=== PATIENT | male | born 1945 | race African-American/Black ===

== ENCOUNTER 2016-06-12 18:10 | Inpatient (IN) | payer MEDICARE, OTHER ==
[~2016-06-12] VITALS: Ht 170.2 cm; Wt 83.0 kg
[~2016-06-12 18:10] MED LIST: LORT7.5T3 PO; OXYC-360 PO; Z.0.NO CURRENT MEDS
[2016-06-12 18:20] VITALS: BP 121/99; PULSE 95; RESP 16; TEMP 97.9; O2SAT 98
[2016-06-12] MEDS ORDERED: SODIUM CHLORIDE 0.9% FLUSH 10 ML FLUSH IVF PRN (18:30)
--- NOTE | 2016-06-12 18:36 | PD ---
HPI Chief Complaint: General Weakness Time Seen by Provider: 18:26 Travel History International Travel<30 days: No Contact w/Intl Traveler<30days: No Traveled to known affect area: No History of Present Illness HPI 70-year-old male presents to the ED via EMS for evaluation of altered mental status. According to EMS the patient was found rolling around in leaves in his yard by neighbors. They state that the patient appeared postictal and they were unable to find a good pulse or BP on arrival. They gave the patient 6 of adenosine and a liter of NS en route. On arrival the patient is alert, sitting upright, in no acute distress. He is unable to account for the events of the afternoon. He denies fevers, chills, headaches, dizziness, cold or flu symptoms , chest pain, palpitations, shortness of breath, abdominal pain, nausea, vomiting, changes in bowel habits, dysuria, back pain, weakness of the extremities. He denies using alcohol or illicit drugs. He denies history of seizure. He takes Lortab for chronic pain. He states that he administers his own daily medications. PCP Dr. Montoya. [facility] Past Medical History Depression: Yes Diabetes: No Diminished Hearing: No Hypertension: Yes Social History Alcohol Use: No (SOBER FOR 24 YEARS PER PT--) Tobacco Use: No Substance Use: No Allergies-Medications (Allergen,Severity, Reaction): Coded Allergies: No Known Allergies (Verified , 06/12/16) Reported Meds & Prescriptions Reported Meds & Active Scripts Active Active Prescriptions or Reported Medications Unobtainable Review of Systems Except as stated in HPI: all other systems reviewed are Neg Physical Exam Narrative GENERAL: Well-nourished, well-developed black male in no acute distress. SKIN: Warm and dry. HEAD: Normocephalic. Atraumatic. EYES: No scleral icterus. No injection or drainage. Pupils pin pint bilaterally. Bilateral arcus senilis. EOMI. ENT: Pearly gillespie tympanic membranes bilaterally. Nasal mucosa is moist. Oropharynx without erythema, edema or exudate. NECK: Supple, trachea midline. No JVD or lymphadenopathy. CARDIOVASCULAR: Regular rate and rhythm without murmurs, gallops, or rubs. 2+ DP and radial pulses bilaterally. RESPIRATORY: Breath sounds equal. Course breath sounds bilaterally. No accessory muscle use. GASTROINTESTINAL: Abdomen soft, non-tender, nondistended. + Bowel sounds MUSCULOSKELETAL: No cyanosis, or edema. Full, active range of motion. Strength 5/5. Neurovascularly intact. NEUROLOGICAL: Awake and alert. Cranial nerves II through XII intact. No difficulties with finger to nose testing. Motor and sensory grossly within normal limits. 5/5 muscle strength in all muscle groups. Slurred speech, pt states this is his normal. BACK: Nontender without obvious deformity. No CVA tenderness. Data Data Last Documented VS Vital Signs Date Time Temp Pulse Resp B/P Pulse Ox O2 Delivery O2 Flow Rate FiO2 06/12/16 18:20 97.9 95 16 121/99 98 Orders Electrocardiogram (06/12/16 18:25) Ammonia (06/12/16 18:25) Complete Blood Count With Diff (06/12/16 18:25) Comprehensive Metabolic Panel (06/12/16 18:25) Creatine Kinase (Cpk) (06/12/16 18:25) Prothrombin Time / Inr (Pt) (06/12/16 18:25) Act Partial Throm Time (Ptt) (06/12/16 18:25) Troponin I (06/12/16 18:25) Thyroid Stimulating Hormone (06/12/16 18:25) Urinalysis - C+S If Indicated (06/12/16 18:25) Chest, Single Ap (06/12/16 18:25) Ct Brain W/O Iv Contrast(Rout) (06/12/16 18:25) Blood Glucose (06/12/16 18:25) Ecg Monitoring (06/12/16 18:25) Iv Access Insert/Monitor (06/12/16 18:25) Oximetry (06/12/16 18:25) Sodium Chloride 0.9% Flush (Ns Flush) (06/12/16 18:30) Drug Screen, Random Urine (06/12/16 18:25) Alcohol (Ethanol) (06/12/16 18:25) Salicylates (Aspirin) (06/12/16 18:25) Tylenol (Acetaminophen) (06/12/16 18:25) Sodium Chlor 0.9% 1000 Ml Inj (Ns 1000 M (06/12/16 21:15) Sodium Chlor 0.9% 1000 Ml Inj (Ns 1000 M (06/12/16 21:15) Labs Laboratory Tests Test 06/12/16 06/12/16 06/12/16 18:50 19:10 19:50 Prothrombin Time 12.2 SEC Prothromb Time International 1.1 RATIO Ratio Activated Partial 19.7 SEC Thromboplast Time White Blood Count 10.0 TH/MM3 Red Blood Count 6.22 MIL/MM3 Hemoglobin 18.4 GM/DL Hematocrit 56.1 % Mean Corpuscular Volume 90.1 FL Mean Corpuscular Hemoglobin 29.5 PG Mean Corpuscular Hemoglobin 32.8 % Concent Red Cell Distribution Width 14.4 % Platelet Count 95 TH/MM3 Mean Platelet Volume 10.6 FL Neutrophils (%) (Auto) 79.9 % Lymphocytes (%) (Auto) 11.6 % Monocytes (%) (Auto) 8.3 % Eosinophils (%) (Auto) 0.0 % Basophils (%) (Auto) 0.2 % Neutrophils # (Auto) 8.0 TH/MM3 Lymphocytes # (Auto) 1.2 TH/MM3 Monocytes # (Auto) 0.8 TH/MM3 Eosinophils # (Auto) 0.0 TH/MM3 Basophils # (Auto) 0.0 TH/MM3 CBC Comment DIFF FINAL Differential Comment Sodium Level 150 MEQ/L Potassium Level 4.3 MEQ/L Chloride Level 116 MEQ/L Carbon Dioxide Level 20.1 MEQ/L Anion Gap 14 MEQ/L Blood Urea Nitrogen 87 MG/DL Creatinine 2.74 MG/DL Estimat Glomerular Filtration 28 ML/MIN Rate Random Glucose 192 MG/DL Calcium Level 8.8 MG/DL Total Bilirubin 0.4 MG/DL Aspartate Amino Transf 14 U/L (AST/SGOT) Alanine Aminotransferase 14 U/L (ALT/SGPT) Alkaline Phosphatase 69 U/L Total Creatine Kinase 155 U/L Troponin I LESS THAN 0.02 NG/ML Total Protein 8.5 GM/DL Albumin 3.9 GM/DL Thyroid Stimulating Hormone 1.490 uIU/ML 3rd Gen Acetaminophen Level LESS THAN 2.0 MCG/ML Ethyl Alcohol Level 4 MG/DL Ammonia LESS THAN 10 MCMOL/L Salicylates Level LESS THAN 1.7 MG/DL [facility] Medical Decision Making Medical Screen Exam Complete: Yes Emergency Medical Condition: Yes Differential Diagnosis pneumonia versus UTI versus electrolyte abnormality versus dehydration versus ACS versus ICH versus accidental overdose versus alcohol intoxication versus other Narrative Course 70-year-old male presents to the ED via EMS for evaluation of altered mental status. According to EMS the patient was found rolling around in leaves in his yard by neighbors. They report that the patient appeared postictal and they were unable to find a good pulse or BP on arrival. 6 of adenosine and a liter of NS administered en route. On arrival the patient is alert, sitting upright, in no acute distress. He is unable to account for the events of the afternoon. He denies fevers, chills, headaches, dizziness, cold or flu symptoms, chest pain, palpitations, shortness of breath, abdominal pain, nausea, vomiting, changes in bowel habits, dysuria, back pain, weakness of the extremities, alcohol use, illicit drug use, history of seizures. He takes Lortab for chronic pain. He states that he administers his own daily medications. PCP Dr. Montoya. Vitals reviewed. Physical exam reveals an alert and oriented black male in no acute distress. The patient does appear dry and there are coarse breath sounds bilaterally but the physical exam is otherwise unremarkable. IV was established. Patient was placed on continuous monitoring. CBC: WBC 10.0. Hemoglobin 18.4 CMP: Sodium 150, chloride 116, BUN 87, creatinine 2.74. INR: 1.1 UA: pending Ammonia: Less than 10 Tox screen: Alcohol level: 4 Tylenol: Less than 2.0 Salicylates: Less than 1.7 Cardiac enzymes: Negative EKG: Rate 98, sinus rhythm. MN interval 146, QRS 81, QTC 414. CXR: No acute cardiopulmonary disease per radiology read. CT of the head: No acute infarct, hemorrhage, mass effect, extra-axial fluid collections. Mild atrophy and white matter small vessel ischemic changes bilaterally per radiology read. The patient is in LETICIA, dehydrated, hemoconcentrated, hypernatremic. 2 L NS bolus ordered. Patient's family denied known history of kidney disease. Previous BUN and creatinine on record are from 2007. I spoke with the patient and his family regarding the results of the workup. They are agreeable to admission. Call placed to [facility]. I spoke with Dr. Aldana who agrees to accept the patient to the medicine service. Please see medicine notes for disposition. Diagnosis Primary Impression: LETICIA (acute kidney injury) Additional Impressions: Dehydration Hypernatremia Scripts Unable to Obtain Active Prescriptions or Reported Meds Celia Delcid Jun 12, 2016 18:36
--- NOTE | 2016-06-12 19:22 | RADRPT ---
EXAM DATE/TIME: 06/12/2016 18:50 [facility] COMPARISON: No previous studies available for comparison. INDICATIONS : Found unresponsive today; possible seizure; postictal. RADIATION DOSE: 56.35 CTDIvol (mGy) MEDICAL HISTORY : Hypertension. SURGICAL HISTORY : None. ENCOUNTER: Initial ACUITY: 1 day PAIN SCALE: 0/10 LOCATION: cranial TECHNIQUE: Multiple contiguous axial images were obtained of the head. Using automated exposure control and adj ustment of the mA and/or kV according to patient size, radiation dose was kept as low as reasonably a chievable to obtain optimal diagnostic quality images. FINDINGS: CEREBRUM: Mild cerebral atrophy is noted. Minimal periventricular white matter small vessel ischemic changes ar e noted. No evidence of midline shift, mass lesion, hemorrhage or acute infarction. No extra-axial f luid collections are seen. POSTERIOR FOSSA: The cerebellum and brainstem are intact. The 4th ventricle is midline. The cerebellopontine angle i s unremarkable. EXTRACRANIAL: The visualized portion of the orbits is intact. SKULL: The calvaria is intact. No evidence of skull fracture. CONCLUSION: Mild cerebral atrophy and minimal periventricular white matter small vessel ischemic changes bilaterally. No acute infarct, acute hemorrhage, mass effect or extra axial fluid collections . Geoff Wood MD on June 12, 2016 at 19:19 Board Certified Radiologist. This report was verified electronically.
--- NOTE | 2016-06-12 19:29 | RADRPT ---
EXAM DATE/TIME: 06/12/2016 18:36 [facility] COMPARISON: No previous studies available for comparison. INDICATIONS : Syncope. MEDICAL HISTORY : None. SURGICAL HISTORY : None. ENCOUNTER: Initial ACUITY: 1 day PAIN SCORE: 0/10 LOCATION: Bilateral chest FINDINGS: A single view of the chest demonstrates the lungs to be symmetrically aerated without evidence of mas s, infiltrate or effusion. The cardiomediastinal contours are unremarkable. Degenerative images and scoliosis of the thoracic spine are noted. Degenerative changes involving the shoulders are noted alisia aterally. CONCLUSION: No acute cardiopulmonary disease. Geoff Wood MD on June 12, 2016 at 19:26 Board Certified Radiologist. This report was verified electronically.
[2016-06-12 19:49] LABS: BASOPHIL % 0.2 % (0.0-2.0); HEMATOCRIT 56.1 % (39.0-51.0); LYMPH % 11.6 % (9.0-44.0); LYMPHOCYTE # 1.2 TH/MM3 (1.0-4.8); MEAN CELL VOLUME 90.1 FL (80.0-100.0); MEAN CORPUSCULAR HEMOGLOBIN 29.5 PG (27.0-34.0); MEAN CORPUSCULAR HGB CONC 32.8 % (32.0-36.0); MONO % 8.3 % (0.0-8.0); NEUT % 79.9 % (16.0-70.0); PLATELET COUNT 95 TH/MM3 (150-450); RED BLOOD COUNT 6.22 MIL/MM3 (4.50-5.90); RED CELL DISTRIBUTION WIDTH 14.4 % (11.6-17.2)
[2016-06-12 19:53] LABS: HEMO FLAGS DIFF FINAL
[2016-06-12 20:01] LABS: ANION GAP 14 MEQ/L (5-15)
[2016-06-12 20:12] LABS: ACETAMINOPHEN LESS THAN 2.0 MCG/ML (10.0-30.0); ALKALINE PHOSPHATASE 69 U/L (45-117); ALT (GPT) 14 U/L (12-78); AST (GOT) 14 U/L (15-37); BICARBONATE 20.1 MEQ/L (21.0-32.0); BLOOD UREA NITROGEN 87 MG/DL (7-18); CHLORIDE 116 MEQ/L (98-107); CREATINE KINASE 155 U/L (39-308); GLOMERULAR FILTRATION RATE 28 ML/MIN (>89); POTASSIUM 4.3 MEQ/L (3.5-5.1); SODIUM (NA) 150 MEQ/L (136-145); TOTAL BILIRUBIN ADULT 0.4 MG/DL (0.2-1.0)
[2016-06-12 20:32] LABS: INTERNATIONAL NORMALIZED RATIO 1.1 RATIO; PROTHROMBIN TIME - PATIENT 12.2 SEC (9.8-11.6)
[2016-06-12 20:34] LABS: APTT (PATIENT) 19.7 SEC (24.3-30.1)
[2016-06-12 21:00] VITALS: BP 129/105; PULSE 94; RESP 16; O2SAT 95
[2016-06-12] MEDS ORDERED: SODIUM CHLOR 0.9% 1000 ML INJ 1,000 ML IV ONE ×2 (21:15)
[2016-06-12] MEDS ORDERED: MAGNESIUM HYDROXIDE SUSP 30 ML CUP PO PRN (21:30)
[2016-06-12] MEDS ORDERED: SENNOSIDES 8.6 MG TAB PO PRN (21:30)
[2016-06-12] MEDS ORDERED: SODIUM CHLORIDE 0.9% FLUSH 10 ML FLUSH IV FLUSH PRN (21:30)
[2016-06-12] MEDS ORDERED: BISACODYL 10 MG SUPP PR PRN (21:30)
[2016-06-12] MEDS ORDERED: NALOXONE HCL 0.4 MG/ML AMP IV PRN (21:30)
[2016-06-12] MEDS ORDERED: HEPARIN SODIUM - SQ 10,000 UNITS/ML VIAL SQ SCH (22:00)
--- NOTE | 2016-06-12 22:15 | HHI.HP ---
[facility] Weston Cruz MD Admission Diagnosis LETICIA, dehydration, hypernatremia Diagnoses: Travel History International Travel<30 Days: No Contact w/Intl Traveler <30 Da: No Traveled to Known Affected Are: No History of Present Illness 70 y/o male with a history of hypertension and hyperlipidemia was brought in by EMS after being found by a friend in a very lethargic/postictal state. According to the ER physician patient was found on the ground very disoriented and EMS was called. EMS was unable to get a good pulse gave 1 L of NS, and patient began to become alert. Another education was given, but unknown which one. According to the son, the patient asked a friend who delivers meals to go to the store and when she returned he was passed out on the ground. He was found to be very disoriented, patient denies any loss of urine or bowels. Son states he is currently close to his baseline mentally but he has not seen him in a few months. He recently moved to [facility] and does not care for his father anymore. Son is not sure if his father is taking any of his medications at home , and thinks he has lost weight. Patient states he feels a little weak, and knows he is in the hospital and the date. He has not seen his dr since last year. He denies any nausea, vomiting, diarrhea, constipation, cough, chest pain or sob. Upon examination patient appears to be alert, and eating dinner and is found to have a resting tremor in his right hand. Patient states he does not have a history of seizures and does not recall having any seizures in the past. PCP is DR. Cruz Review of Systems Constitutional: COMPLAINS OF: Weight loss, DENIES: Fever, Chills Respiratory: DENIES: Cough, Sputum production, Shortness of breath Cardiovascular: COMPLAINS OF: Syncope, DENIES: Chest pain Gastrointestinal: DENIES: Constipation, Diarrhea, Nausea, Vomiting Genitourinary: DENIES: Hematuria, Dysuria Musculoskeletal: DENIES: Back pain, Neck pain Integumentary: DENIES: Rash Hematologic/lymphatic: DENIES: Lymphadenopathy Immunologic/allergic: DENIES: Urticaria Neurologic: DENIES: Headache Past Family Social History Past Medical History HTN Hyperlipidemia Past Surgical History Left cataract Reported Medications Reported Meds & Active Scripts Active Active Prescriptions or Reported Medications Unobtainable Allergies: Coded Allergies: No Known Allergies (Verified , 06/12/16) Active Ordered Medications Current Medications Medications (Trade) Dose Ordered Sig/Wiley Route Start Time Stop Time Status Last Admin Sodium Chloride 1,000 ml @ 999 mls/hr BOLUS ONCE IV 06/12/16 21:15 06/12/16 22:15 06/12/16 21:29 Sodium Chloride 1,000 ml @ 999 mls/hr BOLUS ONCE IV 06/12/16 21:15 06/12/16 22:15 06/12/16 21:30 (1/2 NS 1000 ml Inj) 1,000 ml @ 125 mls/hr Q8H IV 06/12/16 22:00 (NS Flush) 2 ml UNSCH PRN IV FLUSH 06/12/16 21:30 (NS Flush) 2 ml BID IV FLUSH 06/13/16 09:00 (Dulcolax Supp) 10 mg DAILY PRN MD 06/12/16 21:30 (Milk Of Magnesia Liq) 30 ml Q12H PRN PO 06/12/16 21:30 (Senokot) 17.2 mg Q12H PRN PO 06/12/16 21:30 (Heparin Inj) 5,000 units Q12H SQ 06/12/16 22:00 (Narcan Inj) 0.4 mg UNSCH PRN IV 06/12/16 21:30 Family History Patient denies any family history Social History Tobacco use: Denies Alcohol use: Denies quit over 20 years ago Illicit drug use: Denies Physical Exam Vital Signs Vital Signs Date Time Temp Pulse Resp B/P Pulse Ox O2 Delivery O2 Flow Rate FiO2 06/12/16 21:00 94 16 129/105 95 Room Air 06/12/16 18:20 97.9 95 16 121/99 98 Physical Exam GENERAL: This is a well-developed patient, in no apparent distress. SKIN: No rashes, ecchymoses or lesions. Extremely dry and scaly. HEAD: Atraumatic. Normocephalic. No temporal or scalp tenderness. EYES: Pupils equal round and reactive. Extraocular motions intact. No scleral icterus. No injection or drainage. unable to keep left eye open. ENT: Nose without bleeding, purulent drainage or septal hematoma. Airway patent. NECK: Trachea midline. No JVD or lymphadenopathy. Supple, nontender, no meningeal signs. CARDIOVASCULAR: Regular rate and rhythm without murmurs, gallops, or rubs. RESPIRATORY: Clear to auscultation. Breath sounds equal bilaterally. No wheezes , rales, or rhonchi. GASTROINTESTINAL: Abdomen soft, non-tender, nondistended. No hepato-splenomegaly , or palpable masses. No guarding. MUSCULOSKELETAL: Extremities without clubbing, cyanosis, or edema. No joint tenderness, effusion, or edema noted. No calf tenderness. NEUROLOGICAL: Awake and alert. Right hand resting tremor. Motor and sensory grossly within normal limits. Five out of 5 muscle strength in all muscle groups. Normal speech. Laboratory Laboratory Tests Test 06/12/16 06/12/16 06/12/16 18:50 19:10 19:50 Prothrombin Time 12.2 Prothromb Time International 1.1 Ratio Activated Partial 19.7 Thromboplast Time White Blood Count 10.0 Red Blood Count 6.22 Hemoglobin 18.4 Hematocrit 56.1 Mean Corpuscular Volume 90.1 Mean Corpuscular Hemoglobin 29.5 Mean Corpuscular Hemoglobin 32.8 Concent Red Cell Distribution Width 14.4 Platelet Count 95 Mean Platelet Volume 10.6 Neutrophils (%) (Auto) 79.9 Lymphocytes (%) (Auto) 11.6 Monocytes (%) (Auto) 8.3 Eosinophils (%) (Auto) 0.0 Basophils (%) (Auto) 0.2 Neutrophils # (Auto) 8.0 Lymphocytes # (Auto) 1.2 Monocytes # (Auto) 0.8 Eosinophils # (Auto) 0.0 Basophils # (Auto) 0.0 CBC Comment DIFF FINAL Differential Comment Sodium Level 150 Potassium Level 4.3 Chloride Level 116 Carbon Dioxide Level 20.1 Anion Gap 14 Blood Urea Nitrogen 87 Creatinine 2.74 Estimat Glomerular Filtration 28 Rate Random Glucose 192 Calcium Level 8.8 Total Bilirubin 0.4 Aspartate Amino Transf 14 (AST/SGOT) Alanine Aminotransferase 14 (ALT/SGPT) Alkaline Phosphatase 69 Total Creatine Kinase 155 Troponin I LESS THAN 0.02 Total Protein 8.5 Albumin 3.9 Thyroid Stimulating Hormone 1.490 3rd Gen Acetaminophen Level LESS THAN 2.0 Ethyl Alcohol Level 4 Ammonia LESS THAN 10 Salicylates Level LESS THAN 1.7 Result Diagram: 06/12/16190906/12/161909 Imaging Last Impressions Head CT 06/12/161824 Signed Impressions: Service Date/Time: Sunday, June 12, 2016 18:50 - CONCLUSION: Mild cerebral atrophy and minimal periventricular white matter small vessel ischemic changes bilaterally. No acute infarct, acute hemorrhage, mass effect or extra axial fluid collections. Geoff Wood MD Chest X-Ray 06/12/161824 Signed Impressions: Service Date/Time: Sunday, June 12, 2016 18:36 - CONCLUSION: No acute cardiopulmonary disease. Geoff Wood MD Assessment and Plan Problem List: (1) LETICIA (acute kidney injury) ICD Code: N17.9 Status: Acute (2) Dehydration ICD Code: E86.0 Status: Acute (3) Seizure ICD Code: R56.9 Status: Acute (4) Syncope ICD Code: R55 Status: Acute (5) Hypernatremia ICD Code: E87.0 Status: Acute (6) Hypertension ICD Code: I10 Status: Chronic Assessment and Plan 70 y/o male with a history of hypertension and hyperlipidemia was brought in by EMS after being found by a friend in a very lethargic/postictal state. Acute kidney injury, likely due to dehydration Labs: Creatinine 2.7, baseline in 2007 was 0.82 Images reviewed: Ultrasound kidneys showed echogenic kidneys characteristic of medical renal disease, no hydronephrosis -NS bolus 2 given in ED -Supportive IVF 1/2 NS -CMP in a.m. Seizures, questionable Images: Head CT unremarkable -Consult neurology for recommendations -Seizure precautions -EEG pending Syncope EKG shows sinus rhythm -2-D echo ordered -Holter monitoring ordered -Serial troponins and EKG Hypernatremia Labs: Sodium 150 -BMP in a.m., and trend -Continue IVF Hypertension, chronic, currently stable -Monitor vitals -Will order prns if needed DVT prophylaxis: Heparin, SCDs Written by Alondra HOLGUIN, acting as scribe for Dr. Aldana on 06/12/16 at 2204. All or portions of this note were transcribed by scribe [Alondra HOLGUIN]. I , Dr. Gus Aldana personally performed the history, physical exam, and medical decision making; and confirmed the accuracy of the information in the transcribed note. Authenticated by Dr. Gus Aldana on 06/13/16 at 05:32. Discussed Condition With Patient and patient's son Physician Certification 2 Midnight Certification Type: Admission for Inpatient Services Order for Inpatient Services The services are ordered in accordance with Medicare regulations or non- Medicare payer requirements, as applicable. In the case of services not specified as inpatient-only, they are appropriately provided as inpatient services in accordance with the 2-midnight benchmark. Estimated LOS (days): 2 days is the estimated time the patient will need to remain in the hospital, assuming treatment plan goals are met and no additional complications. Post-Hospital Plan: Not yet determined Alondra Reyes Jun 12, 2016 22:15 uGs Aldana MD Jun 13, 2016 05:32
--- NOTE | 2016-06-12 22:20 | EKG ---
Date Performed: 06/12/2016 Time Performed: 19:48:53 PTAGE: 70 years EKG: Sinus rhythm POSSIBLE LEFT ATRIAL ENLARGEMENT NONSPECIFIC T-WAVE ABNORMALITY BORDERLINE ECG PREVIOUS TRACING : 07/16/2007 08.49 Compared to the previous tracing rate faster DOCTOR: Addison Barnett Interpretating Date/Time 06/12/2016 22:18:42
[2016-06-12 22:47] VITALS: BP 130/65; PULSE 84; RESP 17; TEMP 96; O2SAT 95
[2016-06-12 22:59] LABS: BACTERIA, URINE RARE /hpf; BLOOD, URINE TRACE (NEG); COMMENT (UR) CATH-CULTURE IND; CULTURE IF INDICATED CATH CULTURE IND; GLUCOSE,URINE NEG (NEG); HYALINE CAST, URINE 7 /lpf (RARE); KETONE, URINE TRACE mg/dL (NEG); MUCUS URINE FEW /lpf (OCC); NITRITE,URINE NEG (NEG); PH, URINE 5.5 (5.0-8.5); SQUAMOUS EPITHELIAL CELL URINE 2 /hpf (0-5); URINE COLOR YELLOW (YELLW/STRAW)
[2016-06-12 23:04] LABS: AMPHETAMINE, URINE NEG (NEG); BARBITURATES, URINE NEG (NEG); COCAINE, URINE NEG (NEG)
--- NOTE | 2016-06-12 23:55 | RADRPT ---
EXAM DATE/TIME: 06/12/2016 23:05 [facility] COMPARISON: No previous studies available for comparison. INDICATIONS : Increased BUN/creatinine. MEDICAL HISTORY : Hypertension. Depression. Substance use. Altered mental status. SURGICAL HISTORY : None. ENCOUNTER: Initial ACUITY: 1 day PAIN SCORE: 0/10 LOCATION: Bilateral flank MEASUREMENTS: RIGHT KIDNEY: 9.9 x 5.6 x 4.5 cm LEFT KIDNEY: 9.7 x 4.1 x 6.2 cm FINDINGS: Both kidneys are mildly echogenic characteristic of medical renal disease. No hydronephrosis. No yaya nephric fluid. Bladder unremarkable. Prostate enlarged with impression on the base of bladder. CONCLUSION: 1. Echogenic kidneys characteristic of medical renal disease. No hydronephrosis. Prostatic enlargemen t. Bartolo Kruse MD on June 12, 2016 at 23:52 Board Certified Radiologist. This report was verified electronically.
[2016-06-13] VITALS (8 sets, daily range): BP systolic 96–119; BP diastolic 58–70; PULSE 68–128; RESP 17–19; TEMP 97.1–97.9; O2SAT 95–100
[2016-06-13] MEDS: SODIUM CHLOR 0.45% 1000 ML INJ 1,000 ML IV SCH ×5 (01:04→20:46)
[2016-06-13 01:56] LABS: CREATINE KINASE 218 U/L (39-308)
[2016-06-13] MEDS ORDERED: METOPROLOL TARTRATE 25 MG TAB PO ONE (02:00)
--- NOTE | 2016-06-13 08:30 | PD.CONS ---
History of Present Illness Service Neurology Consult Requested By medical Reason for Consult brian Primary Care Physician Weston Cruz MD History of Present Illness 70 y/o male admitted for confusion. found be neighbors and evac called. notes in chart that he was "post-ictal". no clear documentation of sz; he has no hx of sz. son at bedside from out of town, thinks his dad may need more help around home. he believes his dad is taking his meds. no acute events overnight. no cp, no camara, no focal weakness. no hx of sz/stroke/ tia. glucose 192, in renal failure, wbc nml, no fever. ct brain atrophy. Review of Systems as above and admit hp Past Family Social History Past Medical History HTN Hyperlipidemia Past Surgical History Left cataract Reported Medications Reported Meds & Active Scripts Active Active Prescriptions or Reported Medications Unobtainable Allergies: Coded Allergies: No Known Allergies (Verified , 06/12/16) Family History Patient denies any family history Social History Tobacco use: Denies Alcohol use: Denies quit over 20 years ago Illicit drug use: Denies Review of Systems All other ROS: ROS reviewed as documented in chart Past Family Social History Allergies: Coded Allergies: No Known Allergies (Verified , 06/12/16) Active Ordered Medications Current Medications Medications (Trade) Dose Ordered Sig/Wiley Route Start Time Stop Time Status Last Admin (03/19 NS 1000 ml Inj) 1,000 ml @ 125 mls/hr Q8H IV 06/12/16 22:00 06/13/16 06:12 (NS Flush) 2 ml UNSCH PRN IV FLUSH 06/12/16 21:30 (NS Flush) 2 ml BID IV FLUSH 06/13/16 09:00 (Dulcolax Supp) 10 mg DAILY PRN [place] 06/12/16 21:30 (Milk Of Magnesia Liq) 30 ml Q12H PRN PO 06/12/16 21:30 (Senokot) 17.2 mg Q12H PRN PO 06/12/16 21:30 (Heparin Inj) 5,000 units Q12H SQ 06/12/16 22:00 06/13/16 01:04 (Narcan Inj) 0.4 mg UNSCH PRN IV 06/12/16 21:30 (Pneumovax-23 Inj) 25 mcg ONCE ONCE IM 06/13/16 10:00 06/13/16 10:01 (Flu (Quadrivalent) Vaccine Inj) 0.5 ml ONCE ONCE IM 06/13/16 10:00 06/13/16 10:01 Exam I&O / VS 06/12/16 06/12/16 06/13/16 15:00 23:00 07:00 Intake Total 876 ml Output Total 700 ml Balance 176 ml Intake Oral 240 ml IV Total 636 ml Output Urine Total 700 ml # Bowel Movements 0 Vital Signs Date Time Temp Pulse Resp B/P Pulse Ox O2 Delivery O2 Flow Rate FiO2 06/13/16 03:23 79 06/13/16 03:20 97.1 82 17 101/63 95 06/13/16 01:15 128 06/12/16 22:47 96.0 84 17 130/65 95 06/12/16 22:19 Room Air 06/12/16 21:00 94 16 129/105 95 Room Air 06/12/16 18:20 97.9 95 16 121/99 98 General: Alert and Oriented, No acute distress Eye: EOMI Respiratory: Non-labored respirations Neurologic: Alert, Oriented Psychiatric: Cooperative Exam Comments ox 3, disheveled appearance, follows, neck supple, no methodist tenderness, left eye closed/?blepharospasm, had recent cataract surgery in this eye, vff grossly full, mild reduced rt nlf, neck supple, meyer to gravity, no drift, reduced touch in feet, msr sym, no clonus, planter flexor Review/Management Diagnosis/Plan: (1) Syncope Plan: unclear what occurred. he is found to have renal failure not sure of sz/tia but will w/u uremia could cause a metabolic sz recs eeg mri/mra brain labs follow exam probably needs more supervision/live with family no driving monitor for developing cognitive impairment (2) LETICIA (acute kidney injury) (3) Hypertension Problem Qualifiers (1) Syncope: Qualified Code: R55 - Syncope, unspecified syncope type (2) Hypertension: Qualified Code: I10 - Essential hypertension Mark Caal MD Jun 13, 2016 08:30
[2016-06-13] MEDS: SODIUM CHLORIDE 0.9% FLUSH 10 ML FLUSH IV FLUSH SCH ×2 (08:56→20:46)
[2016-06-13 09:08] LABS: BASOPHIL % 0.2 % (0.0-2.0); EOSINOPHIL % 0.4 % (0.0-4.0); HEMATOCRIT 43.8 % (39.0-51.0); HEMO FLAGS DIFF FINAL; LYMPH % 24.1 % (9.0-44.0); LYMPHOCYTE # 2.6 TH/MM3 (1.0-4.8); MEAN CELL VOLUME 88.9 FL (80.0-100.0); MEAN CORPUSCULAR HGB CONC 33.8 % (32.0-36.0); MONO % 9.5 % (0.0-8.0); NEUT % 65.8 % (16.0-70.0); PLATELET COUNT 107 TH/MM3 (150-450); RED BLOOD COUNT 4.93 MIL/MM3 (4.50-5.90); RED CELL DISTRIBUTION WIDTH 14.3 % (11.6-17.2); WHITE BLOOD COUNT 10.7 TH/MM3 (4.0-11.0)
[2016-06-13 09:29] LABS: ALKALINE PHOSPHATASE 56 U/L (45-117); ALT (GPT) 14 U/L (12-78); ANION GAP 6 MEQ/L (5-15); AST (GOT) 16 U/L (15-37); BICARBONATE 27.3 MEQ/L (21.0-32.0); BLOOD UREA NITROGEN 66 MG/DL (7-18); CHLORIDE 117 MEQ/L (98-107); GLOMERULAR FILTRATION RATE 45 ML/MIN (>89); POTASSIUM 4.3 MEQ/L (3.5-5.1); SODIUM (NA) 150 MEQ/L (136-145); TOTAL BILIRUBIN ADULT 0.4 MG/DL (0.2-1.0)
[2016-06-13] MEDS ORDERED: PNEUMOCOCCAL POLYVALENT INJ 25 MCG/0.5 ML SYR IM ONE (10:00)
[2016-06-13] MEDS ORDERED: INFLUENZA VIRUS VACCINE (QUADRIVALENT) 0.5 ML SYR IM ONE (10:00)
--- NOTE | 2016-06-13 10:14 | HHI.PR ---
Subjective Remarks Patient says she feels much better. He has a weak voice. He does appear depressed. No n/v/d/c. Family at bedside. Son says he is more depressed lately, he was not eating much and he did lost > 30 LB over the past 6 month. Patient says he lost weight, he is not eating because he has no appetite. No change in vision, he does have vision problems says he has cataract surgeries. No seizure overnight. No lightheadedness. Denies chest pain or sob. Objective Vitals Vital Signs Date Time Temp Pulse Resp B/P Pulse Ox O2 Delivery O2 Flow Rate FiO2 06/13/16 08:00 97.7 68 18 100/66 97 06/13/16 03:23 79 06/13/16 03:20 97.1 82 17 101/63 95 06/13/16 01:15 128 06/12/16 22:47 96.0 84 17 130/65 95 06/12/16 22:19 Room Air 06/12/16 21:00 94 16 129/105 95 Room Air 06/12/16 18:20 97.9 95 16 121/99 98 I/O 06/12/16 06/12/16 06/12/16 06/13/16 06/13/16 06/13/16 07:00 15:00 23:00 07:00 15:00 23:00 Intake Total 876 ml Output Total 700 ml Balance 176 ml Intake Oral 240 ml IV Total 636 ml Output Urine Total 700 ml # Bowel Movements 0 Result Diagram: 06/13/16 0831 06/13/16 0831 Imaging Last Impressions Head CT 06/12/161824 Signed Impressions: Service Date/Time: Sunday, June 12, 2016 18:50 - CONCLUSION: Mild cerebral atrophy and minimal periventricular white matter small vessel ischemic changes bilaterally. No acute infarct, acute hemorrhage, mass effect or extra axial fluid collections. Geoff Wood MD Chest X-Ray 06/12/161824 Signed Impressions: Service Date/Time: Sunday, June 12, 2016 18:36 - CONCLUSION: No acute cardiopulmonary disease. Geoff Wood MD Renal Ultrasound 06/12/16 0000 Signed Impressions: Service Date/Time: Sunday, June 12, 2016 23:05 - CONCLUSION: 1. Echogenic kidneys characteristic of medical renal disease. No hydronephrosis. Prostatic enlargement. Bartolo Kruse MD Objective Remarks GENERAL: This is a well-developed patient, in no apparent distress. SKIN: No rashes, ecchymoses or lesions. Extremely dry and scaly. HEAD: Atraumatic. Normocephalic. No temporal or scalp tenderness. EYES: Pupils equal round and reactive. Extraocular motions intact. No scleral icterus. No injection or drainage. unable to keep left eye open. ENT: Nose without bleeding, purulent drainage or septal hematoma. Airway patent. NECK: Trachea midline. No JVD or lymphadenopathy. Supple, nontender, no meningeal signs. CARDIOVASCULAR: Regular rate and rhythm without murmurs, gallops, or rubs. RESPIRATORY: Clear to auscultation. Breath sounds equal bilaterally. No wheezes , rales, or rhonchi. GASTROINTESTINAL: Abdomen soft, non-tender, nondistended. No hepato-splenomegaly , or palpable masses. No guarding. MUSCULOSKELETAL: Extremities without clubbing, cyanosis, or edema. No joint tenderness, effusion, or edema noted. No calf tenderness. NEUROLOGICAL: Awake and alert. Right hand resting tremor. Motor and sensory grossly within normal limits. Five out of 5 muscle strength in all muscle groups. Normal speech. A/P Problem List: (1) LETICIA (acute kidney injury) ICD Code: N17.9 Status: Acute (2) Dehydration ICD Code: E86.0 Status: Acute (3) Seizure ICD Code: R56.9 Status: Acute (4) Syncope ICD Code: R55 Status: Acute (5) Hypernatremia ICD Code: E87.0 Status: Acute (6) Hypertension ICD Code: I10 Status: Chronic Assessment and Plan 70 y/o male with a history of hypertension and hyperlipidemia was brought in by EMS after being found by a friend in a very lethargic/postictal state. Acute kidney injury, likely due to dehydration Labs: Creatinine 2.7 on admission, baseline in 2007 was 0.82 Monitor kidney indices, Cr improving Images reviewed: Ultrasound kidneys showed echogenic kidneys characteristic of medical renal disease, no hydronephrosis NS bolus 2 given in ED Supportive IVF 1/2 NS CMP in a.m. Seizures, questionable Images: Head CT unremarkable Consult neurology for recommendations Seizure precautions EEG pending Plan for MRI/MRA brain Syncope EKG shows sinus rhythm 2-D echo ordered Holter monitoring ordered Serial troponins neg and no change in EKG Hypernatremia Labs: Sodium 150 on admission BMP in a.m., trend Continue IVF Hypertension, chronic, currently stable Monitor vitals Will order prns if needed Depression: Will consult psychiatry. DVT prophylaxis: Heparin, SCDs Discussed with the patient, nurse, family at bedside Problem Qualifiers (1) Syncope: Qualified Code: R55 - Syncope, unspecified syncope type (2) Hypertension: Qualified Code: I10 - Essential hypertension Netta Haines MD Jun 13, 2016 10:13
[2016-06-13 12:14] LABS: HDL CHOLESTEROL 33.4 MG/DL (40.0-60.0); LDL CHOLESTEROL 134 MG/DL (0-99)
[2016-06-13] MEDS ORDERED: GLUCAGON 1 MG/ML VIAL OTHER PRN (12:45)
[2016-06-13] MEDS ORDERED: DEXTROSE 50% IN WATER 50 ML VIAL(D50) IV PUSH PRN (12:45)
[2016-06-13] MEDS: HEPARIN SODIUM - SQ 10,000 UNITS/ML VIAL SQ SCH (13:40)
--- NOTE | 2016-06-13 14:23 | RADRPT ---
EXAM DATE/TIME: 06/13/2016 12:59 [facility] COMPARISON: MRI BRAIN W/O CONTRAST, June 13, 2016, 12:59. INDICATIONS : Altered mental status. CVA. MEDICAL HISTORY : Hypertension. SURGICAL HISTORY : Skin grafting. Cataracts. ENCOUNTER: Subsequent ACUITY: 2 day PAIN SCORE: 0/10 LOCATION: cranial Please note a normal MRA of the brain does not entirely exclude the possibility of a small aneurysm, nor the possibility of distal intracranial vessel disease. TECHNIQUE: 3D time of flight MRA was performed. Source images, multiplanar STS MIP, and 3D volume MIP reconstru ctions were reviewed. FINDINGS: There is excellent visualization of the major intracranial arteries out to the second-order branch ve ssels. Left vertebral artery is dominant. Both contribute to the basilar. There is no evidence for an eurysm, vessel truncation or stenosis, and no evidence for vascular malformation. CONCLUSION: Normal examination. Anthony Aguilar Jr., MD on June 13, 2016 at 14:19 Board Certified Radiologist. This report was verified electronically.
--- NOTE | 2016-06-13 14:25 | RADRPT ---
EXAM DATE/TIME: 06/13/2016 12:59 [facility] COMPARISON: No previous studies available for comparison. INDICATIONS : Altered mental status. CVA. MEDICAL HISTORY : Hypertension. SURGICAL HISTORY : Skin grafting. Cataracts. ENCOUNTER: Subsequent ACUITY: 2 day PAIN SCORE: 0/10 LOCATION: cranial TECHNIQUE: Multiplanar, multisequence MRI of the brain was performed without contrast. FINDINGS: CEREBRUM: The ventricles are normal for age. No evidence of midline shift, mass lesion, hemorrhage or acute in farction. No extraaxial fluid collections are seen. The pituitary gland and suprasellar cistern are normal in configuration. WHITE MATTER: Scattered areas of high T2 signal abnormality involving the periventricular white matter of both cere bral hemispheres. POSTERIOR FOSSA: The cerebellum and brainstem are intact. The 4th ventricle is midline. The cerebellopontine angle is unremarkable. The cerebellar tonsils are normal in position. DIFFUSION IMAGING: No focal areas of restricted diffusion are seen. No evidence of acute infarction. EXTRACRANIAL: The visualized portions of the orbits and paranasal sinuses are unremarkable. Note is made of a mucus retention cyst within the right maxillary sinus. CONCLUSION: 1. No acute intracranial abnormality. 2. Chronic small vessel ischemic change. 3. Mucous retention cyst within the right maxillary sinus. Anthony Aguilar Jr., MD on June 13, 2016 at 14:22 Board Certified Radiologist. This report was verified electronically.
[2016-06-13] MEDS: INSULIN ASPART SUPPLEMENTAL SCALE SQ SCH ×2 (16:00→20:46)
[2016-06-13 16:06] LABS: HEMOGLOBIN A1a 1.2 %; HEMOGLOBIN Ao 83.2 %; HEMOGLOBIN LA1C 2.4 %; HEMOGLOBIN P3 4.4 %
[2016-06-13] MEDS ORDERED: ATOR20TA15 PO (19:24)
[2016-06-13] MEDS ORDERED: LISI-515 PO (19:24)
[2016-06-13] MEDS ORDERED: AMLO5 PO (19:24)
--- NOTE | 2016-06-13 23:19 | MG ---
cc: DHEERAJ ONEAL M.D. Sex: M [id number] DESCRIPTION: Awake, drowsy and sleep recording. Hyperventilation not performed. Found rolling around in the leaves in his yard. Syncope. MEDICATIONS: Lopressor Heparin. An 8 Hz 60 microvolt posterior symmetric rhythm is seen. Diffuse theta slowing is seen consistent with mild diffuse encephalopathy. Some sharply contoured alpha waves are occasionally seen in the bicentral and bitemporal head region which probably are more of a normal variant or near sleep recording for this patient. He is noted to be clinically asleep, but did not quite reach stage II sleep. Some of the sharps may be slightly atypical for sleep. IMPRESSION Probably a normal sleep EEG but there are some slightly atypical sharp waves seen and if seizure is thought likely, a repeat EEG is recommended. MD KARLOS Sims/DARI /10:21 PM /11:05 PM
[2016-06-14] VITALS (7 sets, daily range): BP systolic 99–120; BP diastolic 59–67; PULSE 70–90; RESP 17–18; TEMP 97.9–99; O2SAT 96–99
[2016-06-14] MEDS: HEPARIN SODIUM - SQ 10,000 UNITS/ML VIAL SQ SCH ×2 (00:34→11:48)
[2016-06-14] MEDS: SODIUM CHLOR 0.45% 1000 ML INJ 1,000 ML IV SCH ×3 (06:39→20:38)
[2016-06-14] MEDS: INSULIN ASPART SUPPLEMENTAL SCALE SQ SCH ×4 (06:41→20:48)
[2016-06-14 06:45] LABS: AUTOMATED NEUTROPHIL # 3.6 TH/MM3 (1.8-7.7); BASOPHIL % 0.2 % (0.0-2.0); EOSINOPHIL # 0.1 TH/MM3 (0-0.4); EOSINOPHIL % 1.7 % (0.0-4.0); LYMPH % 41.8 % (9.0-44.0); LYMPHOCYTE # 3.2 TH/MM3 (1.0-4.8); MEAN CELL VOLUME 88.8 FL (80.0-100.0); MEAN CORPUSCULAR HEMOGLOBIN 28.3 PG (27.0-34.0); MEAN CORPUSCULAR HGB CONC 31.9 % (32.0-36.0); MONO % 9.6 % (0.0-8.0); NEUT % 46.7 % (16.0-70.0); PLATELET COUNT 84 TH/MM3 (150-450); RED BLOOD COUNT 4.17 MIL/MM3 (4.50-5.90); RED CELL DISTRIBUTION WIDTH 13.8 % (11.6-17.2); WHITE BLOOD COUNT 7.6 TH/MM3 (4.0-11.0)
[2016-06-14 07:03] LABS: HEMO FLAGS AUTO DIFF
[2016-06-14 07:26] LABS: BICARBONATE 24.4 MEQ/L (21.0-32.0); POTASSIUM 3.6 MEQ/L (3.5-5.1)
--- NOTE | 2016-06-14 08:34 | HHI.PR ---
Subjective Remarks in the chair. Appears in nad. Good mood today. and says appetite has improved, he was eating his meals. No new motor /sensory deficit. No seizures. Kidney function improved. Agrees to go to SNF. Objective Vitals Vital Signs Date Time Temp Pulse Resp B/P Pulse Ox O2 Delivery O2 Flow Rate FiO2 06/14/16 07:42 98.2 70 18 120/67 96 06/14/16 07:38 79 06/14/16 07:37 Room Air 06/14/16 04:15 98.6 71 17 99/66 99 06/14/16 01:10 99.0 71 17 114/59 98 06/13/16 20:05 73 06/13/16 19:55 97.8 71 18 119/70 100 06/13/16 18:51 Room Air 06/13/16 16:15 97.9 74 19 96/69 100 06/13/16 12:00 97.6 82 18 103/58 98 I/O 06/13/16 06/13/16 06/13/16 06/14/16 06/14/16 06/14/16 07:00 15:00 23:00 07:00 15:00 23:00 Intake Total 876 ml 960 ml 2838 ml 1501 ml Output Total 700 ml 500 ml 500 ml 300 ml Balance 176 ml 460 ml 2338 ml 1201 ml Intake Oral 240 ml 960 ml 240 ml 240 ml IV Total 636 ml 2598 ml 1261 ml Output Urine Total 700 ml 500 ml 500 ml 300 ml # Bowel Movements 0 0 0 0 Result Diagram: 06/14/16 0546 06/14/16 0546 Imaging Last Impressions Head Magnetic Resonance Angiography 06/13/16 0000 Signed Impressions: Service Date/Time: Monday, June 13, 2016 12:59 - CONCLUSION: Normal examination. Anthony Aguilar Jr., MD Brain MRI 06/13/16 0000 Signed Impressions: Service Date/Time: Monday, June 13, 2016 12:59 - CONCLUSION: 1. No acute intracranial abnormality. 2. Chronic small vessel ischemic change. 3. Mucous retention cyst within the right maxillary sinus. Anthony Aguilar Jr., MD Head CT 06/12/16 1825 Signed Impressions: Service Date/Time: Sunday, June 12, 2016 18:50 - CONCLUSION: Mild cerebral atrophy and minimal periventricular white matter small vessel ischemic changes bilaterally. No acute infarct, acute hemorrhage, mass effect or extra axial fluid collections. Geoff Wood MD Chest X-Ray 06/12/16 1825 Signed Impressions: Service Date/Time: Sunday, June 12, 2016 18:36 - CONCLUSION: No acute cardiopulmonary disease. Geoff Wood MD Renal Ultrasound 06/12/16 0000 Signed Impressions: Service Date/Time: Sunday, June 12, 2016 23:05 - CONCLUSION: 1. Echogenic kidneys characteristic of medical renal disease. No hydronephrosis. Prostatic enlargement. Bartolo Kruse MD Objective Remarks GENERAL: This is a well-developed patient, in no apparent distress. SKIN: No rashes, ecchymoses or lesions. Extremely dry and scaly. HEAD: Atraumatic. Normocephalic. No temporal or scalp tenderness. EYES: Pupils equal round and reactive. Extraocular motions intact. No scleral icterus. No injection or drainage. unable to keep left eye open. ENT: Nose without bleeding, purulent drainage or septal hematoma. Airway patent. NECK: Trachea midline. No JVD or lymphadenopathy. Supple, nontender, no meningeal signs. CARDIOVASCULAR: Regular rate and rhythm without murmurs, gallops, or rubs. RESPIRATORY: Clear to auscultation. Breath sounds equal bilaterally. No wheezes , rales, or rhonchi. GASTROINTESTINAL: Abdomen soft, non-tender, nondistended. No hepato-splenomegaly , or palpable masses. No guarding. MUSCULOSKELETAL: Extremities without clubbing, cyanosis, or edema. No joint tenderness, effusion, or edema noted. No calf tenderness. NEUROLOGICAL: Awake and alert. Right hand resting tremor. Motor and sensory grossly within normal limits. Five out of 5 muscle strength in all muscle groups. Normal speech. A/P Problem List: (1) LETICIA (acute kidney injury) ICD Code: N17.9 Status: Acute (2) Dehydration ICD Code: E86.0 Status: Acute (3) Seizure ICD Code: R56.9 Status: Acute (4) Syncope ICD Code: R55 Status: Acute (5) Hypernatremia ICD Code: E87.0 Status: Acute (6) Hypertension ICD Code: I10 Status: Chronic Assessment and Plan 70 y/o male with a history of hypertension and hyperlipidemia was brought in by EMS after being found by a friend in a very lethargic/postictal state. Acute kidney injury, likely due to dehydration. improved significantly Labs: Creatinine 2.7 on admission, baseline in 2007 was 0.82 Monitor kidney indices, Cr improving Images reviewed: Ultrasound kidneys showed echogenic kidneys characteristic of medical renal disease, no hydronephrosis NS bolus 2 given in ED Supportive IVF 1/2 NS CMP in a.m. Seizures, questionable Images: Head CT unremarkable Consult neurology for recommendations Seizure precautions EEG pending Plan for MRI/MRA brain Syncope EKG shows sinus rhythm 2-D echo normal EF Holter monitoring ordered Serial troponins neg and no change in EKG MRI/MRA reviewed and no acute event PT/OT Hypernatremia. Improving Labs: Sodium 150 on admission BMP in a.m., trend Continue IVF Hypertension, chronic, currently stable Monitor vitals Will order prns if needed Depression: Will consult psychiatry. DVT prophylaxis: Heparin, SCDs Discussed with the patient, nurse, family at bedside plan to dC to SNF Discharge Planning DC to SNF To follow up as OP with PCP and consultants Diet: healthy heart diet as tolerated Activity ad pardeep as tolerated Meds per med reconciliations Problem Qualifiers (1) Syncope: Qualified Code: R55 - Syncope, unspecified syncope type (2) Hypertension: Qualified Code: I10 - Essential hypertension Netta Haines MD Jun 14, 2016 08:34
[2016-06-14] MEDS: SODIUM CHLORIDE 0.9% FLUSH 10 ML FLUSH IV FLUSH SCH ×2 (09:00→20:42)
[2016-06-14 09:12] LABS: SCAN/DIFF AUTO DIFF CONFIRMED
--- NOTE | 2016-06-14 10:07 | EC ---
Study Study Date:06/13/2016 STUDY CONCLUSIONS SUMMARY - Left ventricle: The cavity size was normal. Wall thickness was at the upper limits of normal. Systolic function was normal. The estimated ejection fraction was in the range of 55% to 60%. Wall motion was normal; there were no regional wall motion abnormalities. - Aortic valve: Valve area: 2.36cm^2 (Vmax). - Tricuspid valve: Mild-moderate regurgitation. - Pulmonary arteries: Systolic pressure was mildly increased. PA peak pressure: 41mm Hg (S). If LV function is below 40, please consider prescribing an ACEI or ARB or document rationale for non-use. PROCEDURE DATA STUDY STATUS: Elective. Procedure: Transthoracic echocardiography. Image quality was good. Scanning was performed from the parasternal, apical, and subcostal acoustic windows. Study completion: The patient tolerated the procedure well. Transthoracic echocardiography. M-mode, complete 2D, complete spectral Doppler, and color Doppler. Weight: Weight: 179.6lb. Patient status: Inpatient. CARDIAC ANATOMY LEFT VENTRICLE: The cavity size was normal. Wall thickness was at the upper limits of normal. Systolic function was normal. The estimated ejection fraction was in the range of 55% to 60%. Wall motion was normal; there were no regional wall motion abnormalities. AORTIC VALVE: Trileaflet; normal thickness leaflets. Doppler: Transvalvular velocity was within the normal range. There was no stenosis. No regurgitation. Valve area: 2.36cm^2 (Vmax). AORTA: Aortic root: The aortic root was normal in size. MITRAL VALVE: Mildly thickened leaflets, . Doppler: Transvalvular velocity was within the normal range. There was no evidence for stenosis. No regurgitation. LEFT ATRIUM: The atrium was normal in size. RIGHT VENTRICLE: The cavity size was normal. Wall thickness was normal. PULMONIC VALVE: Doppler: Transvalvular velocity was within the normal range. There was no evidence for stenosis. No regurgitation. TRICUSPID VALVE: Structurally normal valve. Doppler: Transvalvular velocity was within the normal range. Mild-moderate regurgitation. PULMONARY ARTERY: The main pulmonary artery was normal-sized. Systolic pressure was mildly increased. RIGHT ATRIUM: The atrium was normal in size. PERICARDIUM: There was no pericardial effusion. SYSTEMIC VEINS: Inferior vena cava: The vessel was normal in size. Patient weight: 179.6lb _Ejection fraction:_ 65-75% _Fractional shortening:_ 32% up to 5Kg 5-11.5Kg 11.6-22.9Kg 23-45Kg 45-57Kg Aortic Root 7-13 <17 13-22 17-27 17-27 LA diam 6-13 <23 24-38 33-47 37-40 RVID 10-17 7-15 7-15 7-18 8-17 LVIDd 12-22 <32 24-38 33-47 37-40 LVPW 2-4 3-6 5-7 6-8 7-8 IVS 2-4 3-6 5-7 6-8 7-8 BASIC MEASUREMENTS ADULT NORMAL Left ventricle LV internal dimension, ED, chordal level, *31.7 mm 43-52 PLAX LV internal dimension, ES, chordal level, 23.6 mm 23-38 PLAX Fractional shortening, chordal level, PLAX *26 % >29 LV posterior wall thickness, ED 8.87 mm IVS/LVPW ratio, ED 0.98 <1.3 Ventricular septum Septal thickness, ED 8.71 mm Aortic valve Leaflet separation 17 mm 15-26 BASIC MEASUREMENTS ADULT NORMAL Aortic valve Leaflet separation 17 mm 15-26 Aorta Root diameter, ED 28 mm 20-37 Left atrium Anterior-posterior dimension, ES 29 mm 19-40 LA/aortic root ratio 1.04 DOPPLER MEASUREMENTS ADULT NORMAL Main pulmonary artery Pressure, S *41 mm Hg =30 Aortic valve Peak velocity, S 115 cm/s Valve area, Vmax 2.36 cm^2 Mitral valve Peak E-wave velocity 42.4 cm/s Peak A-wave velocity 55.3 cm/s Deceleration time 204 ms 150-230 Peak E/A ratio 0.8 Tricuspid valve Regurgitant peak velocity 284 cm/s Peak RV-RA gradient, S 32 mm Hg Maximal regurgitant velocity 284 cm/s Systemic veins Estimated CVP 10 mm Hg Right ventricle RV pressure, S *46 mm Hg <30 Pulmonic valve Peak velocity, S 111 cm/s LEGEND: Mean values are shown as u=mean value. Asterisk (*) cohu values outside specified normal range. Prepared and signed by Thomas Benavides [id number]
[2016-06-14] MEDS ORDERED: MULT1TAB85 PO (10:30)
[2016-06-14] MEDS: MULTIVITAMIN TAB PO SCH (11:42)
--- NOTE | 2016-06-14 14:16 | HHI.DS ---
Discharge Summary Admission Date Jun 12, 2016 at 21:26 Discharge Date: Jun 14, 2016 Admitting Diagnosis LETICIA, dehydration, hypernatremia (1) LETICIA (acute kidney injury) ICD Code: N17.9 Diagnosis: Principal (2) Dehydration ICD Code: E86.0 Diagnosis: Principal (3) Syncope ICD Code: R55 Diagnosis: Principal (4) Hypernatremia ICD Code: E87.0 Diagnosis: Principal (5) Seizure ICD Code: R56.9 Diagnosis: Secondary (6) Hypertension ICD Code: I10 Diagnosis: Secondary Procedures none Brief History - From Admission 70 y/o male with a history of hypertension and hyperlipidemia was brought in by EMS after being found by a friend in a very lethargic/postictal state. According to the ER physician patient was found on the ground very disoriented and EMS was called. EMS was unable to get a good pulse gave 1 L of NS, and patient began to become alert. Another education was given, but unknown which one. According to the son, the patient asked a friend who delivers meals to go to the store and when she returned he was passed out on the ground. He was found to be very disoriented, patient denies any loss of urine or bowels. Son states he is currently close to his baseline mentally but he has not seen him in a few months. He recently moved to [facility] and does not care for his father anymore. Son is not sure if his father is taking any of his medications at home , and thinks he has lost weight. Patient states he feels a little weak, and knows he is in the hospital and the date. He has not seen his dr since last year. He denies any nausea, vomiting, diarrhea, constipation, cough, chest pain or sob. Upon examination patient appears to be alert, and eating dinner and is found to have a resting tremor in his right hand. Patient states he does not have a history of seizures and does not recall having any seizures in the past. PCP is DR. Cruz CBC/BMP: 06/14/16 0546 06/14/16 0546 Significant Findings Laboratory Tests Test 3/06/12/16 06/12/16 06/12/16 18:50 19:10 19:50 22:35 Prothrombin Time 12.2 SEC (9.8-11.6) Activated Partial 19.7 SEC Thromboplast Time (24.3-30.1) Red Blood Count 6.22 MIL/MM3 (4.50-5.90) Hemoglobin 18.4 GM/DL (13.0-17.0) Hematocrit 56.1 % (39.0-51.0) Platelet Count 95 TH/MM3 (150-450) Neutrophils (%) (Auto) 79.9 % (16.0-70.0) Monocytes (%) (Auto) 8.3 % (0.0-8.0) Neutrophils # (Auto) 8.0 TH/MM3 (1.8-7.7) Sodium Level 150 MEQ/L (136-145) Chloride Level 116 MEQ/L (98-107) Carbon Dioxide Level 20.1 MEQ/L (21.0-32.0) Blood Urea Nitrogen 87 MG/DL (7-18) Creatinine 2.74 MG/DL (0.60-1.30) Estimat Glomerular Filtration 28 ML/MIN (>89) Rate Random Glucose 192 MG/DL (74-106) Aspartate Amino Transf 14 U/L (15-37) (AST/SGOT) Troponin I LESS THAN 0.02 NG/ML (0.02-0.05) Total Protein 8.5 GM/DL (6.4-8.2) Acetaminophen Level LESS THAN 2.0 MCG/ML (10.0-30.0) Ammonia LESS THAN 10 MCMOL/L (11-32) Salicylates Level LESS THAN 1.7 MG/DL (2.8-20.0) Urine Turbidity HAZY (CLEAR) Urine Protein 30 mg/dL (NEG-TRACE) Urine Ketones TRACE mg/dL (NEG) Urine Occult Blood TRACE (NEG) Urine Bacteria RARE /hpf (NONE) Urine Mucus FEW /lpf (OCC) Test 06/13/16 06/13/16 06/13/16 06/14/16 01:05 08:31 11:00 05:46 Troponin I LESS THAN 0.02 NG/ML (0.02-0.05) Platelet Count 107 TH/MM3 84 TH/MM3 (150-450) (150-450) Monocytes (%) (Auto) 9.5 % (0.0-8.0) 9.6 % (0.0-8.0) Monocytes # (Auto) 1.0 TH/MM3 (0-0.9) Sodium Level 150 MEQ/L 146 MEQ/L (136-145) (136-145) Chloride Level 117 MEQ/L 113 MEQ/L (98-107) (98-107) Blood Urea Nitrogen 66 MG/DL (7-18) 35 MG/DL (7-18) Creatinine 1.84 MG/DL (0.60-1.30) Estimat Glomerular Filtration 45 ML/MIN (>89) 68 ML/MIN (>89) Rate Random Glucose 139 MG/DL 119 MG/DL (74-106) (74-106) Calcium Level 8.0 MG/DL 8.0 MG/DL (8.5-10.1) (8.5-10.1) Albumin 3.1 GM/DL (3.4-5.0) Hemoglobin A1c 6.2 % (4.3-6.0) LDL Cholesterol 134 MG/DL (0-99) HDL Cholesterol 33.4 MG/DL (40.0-60.0) Vitamin B12 Level 1066 PG/ML (193-986) Red Blood Count 4.17 MIL/MM3 (4.50-5.90) Hemoglobin 11.8 GM/DL (13.0-17.0) Hematocrit 37.0 % (39.0-51.0) Mean Corpuscular Hemoglobin 31.9 % Concent (32.0-36.0) Imaging Last Impressions Head Magnetic Resonance Angiography 06/13/16 0000 Signed Impressions: Service Date/Time: Monday, June 13, 2016 12:59 - CONCLUSION: Normal examination. Anthony Aguilar Jr., MD Brain MRI 06/13/16 0000 Signed Impressions: Service Date/Time: Monday, June 13, 2016 12:59 - CONCLUSION: 1. No acute intracranial abnormality. 2. Chronic small vessel ischemic change. 3. Mucous retention cyst within the right maxillary sinus. Anthony Aguilar Jr., MD Head CT 06/12/16 1825 Signed Impressions: Service Date/Time: Sunday, June 12, 2016 18:50 - CONCLUSION: Mild cerebral atrophy and minimal periventricular white matter small vessel ischemic changes bilaterally. No acute infarct, acute hemorrhage, mass effect or extra axial fluid collections. Geoff Wood MD Chest X-Ray 06/12/16 1825 Signed Impressions: Service Date/Time: Sunday, June 12, 2016 18:36 - CONCLUSION: No acute cardiopulmonary disease. Geoff Wood MD Renal Ultrasound 06/12/16 0000 Signed Impressions: Service Date/Time: Sunday, June 12, 2016 23:05 - CONCLUSION: 1. Echogenic kidneys characteristic of medical renal disease. No hydronephrosis. Prostatic enlargement. Bartolo Kruse MD PE at Discharge GENERAL: This is a well-developed patient, in no apparent distress. SKIN: No rashes, ecchymoses or lesions. Extremely dry and scaly. HEAD: Atraumatic. Normocephalic. No temporal or scalp tenderness. EYES: Pupils equal round and reactive. Extraocular motions intact. No scleral icterus. No injection or drainage. unable to keep left eye open. ENT: Nose without bleeding, purulent drainage or septal hematoma. Airway patent. NECK: Trachea midline. No JVD or lymphadenopathy. Supple, nontender, no meningeal signs. CARDIOVASCULAR: Regular rate and rhythm without murmurs, gallops, or rubs. RESPIRATORY: Clear to auscultation. Breath sounds equal bilaterally. No wheezes , rales, or rhonchi. GASTROINTESTINAL: Abdomen soft, non-tender, nondistended. No hepato-splenomegaly , or palpable masses. No guarding. MUSCULOSKELETAL: Extremities without clubbing, cyanosis, or edema. No joint tenderness, effusion, or edema noted. No calf tenderness. NEUROLOGICAL: Awake and alert. Right hand resting tremor. Motor and sensory grossly within normal limits. Five out of 5 muscle strength in all muscle groups. Normal speech. Pt update on day of discharge Patient in bed, says he feels improving today. He is eating much better. No n/v/ d/c. no focal deficit. Denies seizures. No fevers or chills Hospital Course 70 y/o male with a history of hypertension and hyperlipidemia was brought in by EMS after being found by a friend in a very lethargic/postictal state. Acute kidney injury, likely due to dehydration. improved significantly Labs: Creatinine 2.7 on admission, baseline in 2007 was 0.82 Monitor kidney indices, Cr improving Images reviewed: Ultrasound kidneys showed echogenic kidneys characteristic of medical renal disease, no hydronephrosis NS bolus 2 given in ED Supportive IVF 1/2 NS CMP in a.m. Seizures, questionable Images: Head CT unremarkable Consult neurology for recommendations Seizure precautions EEG pending Plan for MRI/MRA brain Syncope EKG shows sinus rhythm 2-D echo normal EF Holter monitoring ordered Serial troponins neg and no change in EKG MRI/MRA reviewed and no acute event PT/OT Hypernatremia. Improving Labs: Sodium 150 on admission BMP in a.m., trend Continue IVF Hypertension, chronic, currently stable Monitor vitals Will order prns if needed Depression: Will consult psychiatry. DVT prophylaxis: Heparin, SCDs Discussed with the patient, nurse, family at bedside plan to DC to SNF Discharge Planning DC to SNF To follow up as OP with PCP and consultants Diet: healthy heart diet as tolerated Activity ad pardeep as tolerated Meds per med reconciliations Improved, was DC to SNF in fairly good condition, to follow up as OP with PCP and consultants. Pt Condition on Discharge: Stable Discharge Disposition: Discharge to SNF Discharge Time: > 30 minutes Discharge Instructions DIET: Follow Instructions for: Heart Healthy Diet Activities you can perform: Regular-No Restrictions Follow up Referrals: Neurology - 3 Weeks with Mark Caal MD PCP Follow-up - 3-5 Days New Medications: Multiple Vitamins W/ Minerals (Multivitamin Men) 1 Tab Tab 1 TAB PO DAILY Nutritional Supplement #30 Ref 0 TAB Continued Medications: Atorvastatin (Atorvastatin) 20 Mg Tab 20 MG PO HS Cholesterol Management #30 Ref 0 TAB Discontinued Medications: Amlodipine (Norvasc) 5 Mg Tab 5 MG PO DAILY Blood Pressure Management #30 Ref 0 TAB Lisinopril (Lisinopril) 20 Mg Tab 20 MG PO HS #30 Ref 0 TAB Netta Haines MD Jun 14, 2016 14:16
--- NOTE | 2016-06-14 14:33 | PD.CONS ---
Provisional Diagnosis Admission Date Jun 12, 2016 at 21:26 [place] I. Adjustment disorder with depressed mood [place] II. Deferred [place] III. Hypertension [place] IV. Domiciled alone [place] V. 55 History of Present Illness Service Psychiatry Consult Requested By Primary Care Physician Weston Cruz MD HPI The patient is a 70-year-old man, domiciled alone, divorce, supported by Social Security, without any previous psychiatric history, no previous psychiatric hospitalizations, no previous suicidal attempts, with medical history of hypertension and hyperlipidemia was brought in by EMS after being found by a friend in a very lethargic/postictal state. According to the ER physician patient was found on the ground very disoriented and EMS was called. According to the son, the patient asked a friend who delivers meals to go to the store and when she returned he was passed out on the ground. He was found to be very disoriented, patient denies any loss of urine or bowels. Son states he is currently close to his baseline mentally but he has not seen him in a few months. Patient denied history of seizure. He was finally hospitalized with Acute kidney injury, likely due to dehydration, Creatinine 2.7 , baseline in 2007 was 0.82. Seizures, questionable, Head CT unremarkable, EEG performed, showed some a typical sharp waves, Hypernatremia, Sodium 150. He was consulted to psychiatry due to depressive symptoms. On psychiatric evaluation today patient is found calm, cooperative and pleasant laying down in his bed. Patient says that he has been doing okay, he says that he was brought to the ER and finally hospitalized "because I was not doing very well, I was feeling fatigued, but now I am much better". Patient reports good mood, he says that he always has being happy person, "I take the life as if this and as it comes, it is never easy". He denies depressive symptoms, he denies anhedonia , he denies hopelessness, he denies helplessness, he denies worthlessness, he denies problems sleeping, he does report poor appetite "my appetite has been decreased, but I don't understand why", however in front of me patient was ordering breakfast stating that he was hungry. Patient is future oriented, he wants to go home to continue with his life. Patient denies suicidal or homicidal ideation, he denies visual and auditory hallucinations. Patient is fully oriented 3, no fluctuation of consciousness, no attention deficit, no agitation, no aggressive behavior observed or reported. Patient denies the use of drugs and alcohol. Review of Systems Constitutional: COMPLAINS OF: Fatigue, DENIES: Diaphoretic episodes, Fever, Weight gain, Weight loss, Chills, Dizziness, Change in appetite, Night Sweats Endocrine: DENIES: Heat/cold intolerance, Polydipsia, Polyuria, Polyphagia Eyes: DENIES: Blurred vision, Diplopia, Eye inflammation, Eye pain, Vision loss , Photosensitivity, Double Vision Ears, nose, mouth, throat: DENIES: Tinnitus, Hearing loss, Vertigo, Nasal discharge, Oral lesions, Throat pain, Hoarseness, Ear Pain, Running Nose, Epistaxis, Sinus Pain, Toothache, Odynophagia Respiratory: DENIES: Apneas, Cough, Snoring, Wheezing, Hemoptysis, Sputum production, Shortness of breath Cardiovascular: DENIES: Chest pain, Palpitations, Syncope, Dyspnea on Exertion , PND, Lower Extremity Edema, Orthopnea, Claudication Gastrointestinal: DENIES: Abdominal pain, Black stools, Bloody stools, Constipation, Diarrhea, Nausea, Vomiting, Difficulty Swallowing, Anorexia Musculoskeletal: DENIES: Joint pain, Muscle aches, Stiffness, Joint Swelling, Back pain, Neck pain Integumentary: DENIES: Abnormal pigmentation, Nail changes, Pruritus, Rash Hematologic/lymphatic: DENIES: Bruising, Lymphadenopathy Immunologic/allergic: DENIES: Eczema, Urticaria Neurologic: DENIES: Abnormal gait, Headache, Localized weakness, Paresthesias, Seizures, Speech Problems, Tremor, Poor Balance Psychiatric: DENIES: Anxiety, Confusion, Mood changes, Depression, Hallucinations, Agitation, Suicidal Ideation, Homicidal Ideation, Delusions Past Family Social History Coded Allergies: No Known Allergies (Verified , 06/12/16) Active Scripts Multiple Vitamins W/ Minerals (Multivitamin Men)1 Tab Tab1 Tab PO DAILY #30 TAB Ref 0 Prov:Netta Haines MD 06/14/16 Reported Medications Amlodipine (Norvasc)5 Mg Tab5 Mg PO DAILY #30 TAB Ref 0 06/13/16 Atorvastatin 20 Mg Tab20 Mg PO HS #30 TAB Ref 0 06/13/16 Lisinopril 20 Mg Tab20 Mg PO HS #30 TAB Ref 0 06/13/16 Current Medications Medications (Trade) Dose Ordered Sig/Wiley Route Start Time Stop Time Status Last Admin (03/19 NS 1000 ml Inj) 1,000 ml @ 125 mls/hr Q8H IV 06/12/16 22:00 06/14/16 11:49 (NS Flush) 2 ml UNSCH PRN IV FLUSH 06/12/16 21:30 (NS Flush) 2 ml BID IV FLUSH 06/13/16 09:00 (Dulcolax Supp) 10 mg DAILY PRN [place] 06/12/16 21:30 (Milk Of Magnesia Liq) 30 ml Q12H PRN PO 06/12/16 21:30 (Senokot) 17.2 mg Q12H PRN PO 06/12/16 21:30 (Narcan Inj) 0.4 mg UNSCH PRN IV 06/12/16 21:30 (Heparin Inj) 5,000 units Q12H SQ 06/13/16 13:00 06/14/16 11:48 (D50w (Vial) Inj) 25 ml UNSCH PRN IV PUSH 06/13/16 12:45 (Glucagon Inj) 1 mg UNSCH PRN OTHER 06/13/16 12:45 (Theragran) 1 tab DAILY PO 06/14/16 10:30 06/14/16 11:42 Family History Patient denies Social History Patient was born and raised in [place], he lives alone, is , he supported by Social Security, his highest level of education is seventh Patient's Strengths (min. 2) Verbal communication Physical Exam On examination no tremors, no psychomotor retardation, no EPS, no stiffness, no parkinsonism, no stiffness present Vital Signs Vital Signs Date Time Temp Pulse Resp B/P Pulse Ox O2 Delivery O2 Flow Rate FiO2 06/14/16 12:00 98.1 90 18 112/62 98 06/14/16 07:37 Room Air I/O 06/13/16 06/13/16 06/13/16 07:59 15:59 23:59 Intake Total 876 ml 960 ml 2838 ml Output Total 700 ml 500 ml 500 ml Balance 176 ml 460 ml 2338 ml Lab Results WBC 7.6, Hgb 11.8, HCT 37, and a 146, K3.6, BUN 35, creatinine 1.27, ALT 14, AST 16 Mental Status Examination Appearance Overweight man, laying in bed, hospital pajamas, fair hygiene, edentulous, calm, cooperative and pleasant Speech: Unremarkable Orientation: x3 Memory: Unremarkable Thought Process: Logical Thought Content: Unremarkable Hallucination Type: None Suicidal Ideation: No Previous Suicide Attempts: No Homicidal Ideation: No Previous Homicide Attempts: No Judgement: WNL Affect: Good Mood: Appropriate Motor Activity: Normal gait Assessment & Plan Problem List: (1) Adjustment disorder with depressed mood Assessment & Plan: On psychiatric evaluation today the patient does not present any evidence of significant or acute subjective or objective depressive symptoms, anxiety, angus or psychosis. The patient denies suicidal or homicidal ideation. Patient denies visual and auditory hallucinations. Patient is fully oriented 3, no gross cognitive impairment, no attention deficit, no agitation or aggressive behavior observed or reported. Patient doesn't have psychiatric history, he does not have any previous psychiatric hospitalization, no previous suicidal attempts. It is highly probable the recent depressive symptoms observed and poor appetite are secondary to post ictal state and adjustment disorder secondary with underlying medical condition. Patient does not meet criteria for psychiatric admission at this moment. Extensive psychoeducation and support provided. No psychotropics recommended. Consult appreciated. ICD Code: F43.21 Assessment & Plan Estimated LOS: days Manny Bennett MD Jun 14, 2016 14:33
[2016-06-15] VITALS: BP 124/64; PULSE 83; RESP 16; TEMP 99.3; O2SAT 97
[2016-06-15] MEDS: SODIUM CHLOR 0.45% 1000 ML INJ 1,000 ML IV SCH ×2 (00:12→13:59)
[2016-06-15] MEDS: HEPARIN SODIUM - SQ 10,000 UNITS/ML VIAL SQ SCH ×2 (00:15→13:00)
[2016-06-15 04:00] VITALS: BP 129/75; PULSE 71; RESP 18; TEMP 99.5; O2SAT 96
[2016-06-15] MEDS: INSULIN ASPART SUPPLEMENTAL SCALE SQ SCH ×2 (06:25→11:00)
[2016-06-15 08:00] VITALS: BP 119/66; PULSE 79; RESP 16; TEMP 98.4; O2SAT 97
[2016-06-15] MEDS: MULTIVITAMIN TAB PO SCH (08:42)
[2016-06-15] MEDS: SODIUM CHLORIDE 0.9% FLUSH 10 ML FLUSH IV FLUSH SCH (08:43)
[2016-06-15 12:00] VITALS: BP 142/81; PULSE 80; RESP 18; TEMP 97.7; O2SAT 98
--- NOTE | 2016-06-15 12:07 | HHI.PR ---
Review/Management Diagnosis/Plan: (1) Syncope Plan: unclear what occurred. he is found to have renal failure not sure of sz/tia but will w/u uremia could cause a metabolic sz recs eeg-reviewed; will add keppra for now will repeat eeg outpatient serial cognitive exams mri/mra brain-no acute lesion; carotids ok d/c planning from neuro and f/u in 2-3 weeks probably needs more supervision/live with family no driving monitor for developing cognitive impairment (2) LETICIA (acute kidney injury) Plan: improved (3) Hypertension Subjective Subjective Comments No acute events reported No headache No chest pain No dyspnea Active Medications Current Medications Medications (Trade) Dose Ordered Sig/Wiley Route Start Time Stop Time Status Last Admin (03/19 NS 1000 ml Inj) 1,000 ml @ 125 mls/hr Q8H IV 06/12/16 22:00 06/14/16 11:49 (NS Flush) 2 ml UNSCH PRN IV FLUSH 06/12/16 21:30 (NS Flush) 2 ml BID IV FLUSH 06/13/16 09:00 (Dulcolax Supp) 10 mg DAILY PRN OR 06/12/16 21:30 (Milk Of Magnesia Liq) 30 ml Q12H PRN PO 06/12/16 21:30 (Senokot) 17.2 mg Q12H PRN PO 06/12/16 21:30 (Narcan Inj) 0.4 mg UNSCH PRN IV 06/12/16 21:30 (Heparin Inj) 5,000 units Q12H SQ 06/13/16 13:00 06/15/16 00:15 (D50w (Vial) Inj) 25 ml UNSCH PRN IV PUSH 06/13/16 12:45 (Glucagon Inj) 1 mg UNSCH PRN OTHER 06/13/16 12:45 (Theragran) 1 tab DAILY PO 06/14/16 10:30 06/15/16 08:42 Allergies Allergies Coded Allergies No Known Allergies (Verified06/12/16) Review of Systems All other ROS: ROS reviewed as documented in chart Exam I&O / VS 06/14/16 06/14/16 06/15/16 14:59 22:59 06:59 Intake Total 1464 ml 720 ml 240 ml Output Total 600 ml 700 ml 850 ml Balance 864 ml 20 ml -610 ml Intake Oral 600 ml 720 ml 240 ml IV Total 864 ml Output Urine Total 600 ml 700 ml 850 ml # Bowel Movements 0 0 1 Vital Signs Date Time Temp Pulse Resp B/P Pulse Ox O2 Delivery O2 Flow Rate FiO2 06/15/16 08:00 98.4 79 16 119/66 97 06/15/16 08:00 Room Air 06/15/16 04:00 99.5 71 18 129/75 96 06/15/16 00:00 99.3 83 16 124/64 97 06/14/16 20:00 98.6 81 18 116/64 97 06/14/16 16:00 97.9 86 18 116/62 98 General: Alert and Oriented, No acute distress Eye: EOMI Respiratory: Non-labored respirations Neurologic: Alert, Oriented Psychiatric: Cooperative Exam Comments ox 3, obese, follows, sitting up washing himself, neck supple, no baptist tenderness, left eye closed/?blepharospasm, had recent cataract surgery in this eye, vff grossly full, mild reduced rt nlf, neck supple, meyer to gravity, no drift, reduced touch in feet, Objective Micro and Labs Date/Time Procedure Status Source Growth 06/13/16 01:36 Urine Culture - Final Complete Urine Catheterized Urine NO GROWTH IN 48 HOURS. 06/13/16 01:26 Urine Culture Received Urine Catheterized Urine Pending Problem Qualifiers (1) Syncope: Qualified Code: R55 - Syncope, unspecified syncope type (2) Hypertension: Qualified Code: I10 - Essential hypertension Mark Caal MD Jun 15, 2016 12:07
[2016-06-15] MEDS ORDERED: levETIRAcetam 500 MG TAB PO SCH (12:15)
[2016-06-15] MEDS ORDERED: ASPIRIN EC 81 MG TABEC PO SCH (12:15)
--- NOTE | 2016-06-17 21:48 | HM ---
Date Performed: 06/13/2016 Time Performed: 17:09:00 HOOKUP DATE: 06/13/16 05:09:00 PM Wed ANALYSIS START TIME: 06/13/2016 5:14:00 PM ANALYSIS END TIME: 06/14/2016 4:15:16 PM PATIENT AGE: 70 PATIENT HEIGHT PATIENT WEIGHT: 180 DRUG LIST: ROOM # [id number] PATIENT DIAGNOSIS: EVAC/AMS TEST NARRATIVE: The patient's average heart rate was 81 BPM. Heart rates greater than 120 B PM were noted 3% of the time. No episodes of bradycardia were noted. No pauses exceeding 2.0 sec onds were noted. 1545 ventricular ectopics, which represented 1% of the total beat count, were no christal. The highest ventricular ectopic frequency occurred from 09:00 AM to 10:00 AM Kaylene. During this time 156 VE(s) occurred. Ventricular ectopics were observed as 1531 isolated beat(s) and as 7 couple t(s). No runs were noted. 64 supraventricular ectopics, which represented < 1% of the total beat count, were noted. The highest supraventricular ectopic frequency occurred from 03:00 PM to 04:00 P M Kaylene. During this time 37 SVE(s) occurred. No episodes of ST depression (defined as -1.0 mm or more) were noted in channel 1. No episodes of ST depression (defined as -1.0 mm or more) were noted in channel 2. No episodes of ST depression (defined as -1.0 mm or more) were noted in channel 3. NO DIARY MAINTAINED TEST INTERPRETATION: Sinus . Short episodes of supraventricular tachycardia No pause. No ventric ular tachycardia observed There is no entry in the diary Signed by : Scot Yates
== END 2016-06-15 15:24 | DRG 683 ==
LOC: NEPE 18:10 → NEDA 21:26 → N06A 22:49
PROVIDERS: ADMIT Hospitalist; ATTEND Hospitalist
DX: N17.9 Acute kidney failure, unspecified (principal); E87.0 Hyperosmolality and hypernatremia; R56.9 Unspecified convulsions; R55 Syncope and collapse; E86.0 Dehydration; I10 Essential (primary) hypertension; E78.5 Hyperlipidemia, unspecified; G89.29 Other chronic pain; Y90.0 Blood alcohol level of less than 20 mg/100 ml; F43.21 Adjustment disorder with depressed mood
CPT/HCPCS: 70450; 70544; 70551; 71010; 76775; 80048; 80053; 80061; 80307; 81001; 82140; 82550; 82607; 82948; 83036; 83735; 84443; 84484; 85025; 85610; 85652; 85730; 87086; 90471; 90732; 93005; 93225; 93226; 93306; 95819; G0009; J1644; J1815; J7030

== ENCOUNTER 2017-11-25 17:50 | Observation (INO) ==
[2017-11-25] MEDS ORDERED: Sod Chloride 0.9% Inj 1,000 ML IV.SIG SCH ×2 (20:45→22:15)
--- NOTE | 2017-11-25 20:58 | XR ---
EXAM DATE: 11/25/2017 8:55 PM EDT AGE/SEX: 72 years / Male INDICATIONS: Chest pain CLINICAL DATA: This is the patient's initial encounter. Patient reports that signs and symptoms have been present for 1 day and indicates a pain score of 3/10. MEDICAL/SURGICAL HISTORY: Hypertension. None. COMPARISON: [facility] [place]. . FINDINGS: A single AP view of the chest demonstrates the lungs to be symmetrically aerated without evidence of mass, infiltrate or effusion. The cardiomediastinal contours are unremarkable. Osseous structures a re intact. CONCLUSION: No acute cardiopulmonary disease. Electronically signed by: Roberto Valencia MD 11/25/2017 8:57 PM EDT
[2017-11-25 21:04] LABS: Baso # (Auto) 0.1 th/mm3 (0.0-0.2); Baso % (Auto) 0.5 % (0.0-2.0); Eos % (Auto) 0.1 % (0.0-4.0); Hematocrit 54.7 % (39.0-51.0); Lymph # (Auto) 3.2 th/mm3 (1.0-4.8); Lymph % (Auto) 32.2 % (9.0-44.0); Mean Corpuscular HGB Conc 32.9 % (32.0-36.0); Mean Corpuscular Hemoglobin 29.8 pg (27.0-34.0); Mean Corpuscular Volume 90.8 fL (80.0-100.0); Mean Platelet Volume 9.5 fL (7.0-11.0); Mono # (Auto) 0.8 th/mm3 (0.0-0.9); Mono % (Auto) 7.9 % (0.0-8.0); Neut % (Auto) 59.3 % (16.0-70.0); Platelet Count 221 th/mm3 (150-450); Red Blood Count 6.02 mil/mm3 (4.50-5.90); Red Cell Distribution Width 14.8 % (11.6-17.2); White Blood Count 10.1 th/mm3 (4.0-11.0)
[2017-11-25 21:14] LABS: Activated Partial Thrombo Time 22.6 sec (24.3-30.1); INR 1.1 Ratio; Prothrombin Time 11.4 sec (9.8-11.6)
[2017-11-25 21:42] LABS: Alanine Aminotransferase 18 U/L (12-78)
[2017-11-25 21:53] LABS: Alkaline Phosphatase 92 U/L (45-117); Total Protein 10.3 g/dL (6.4-8.2)
--- NOTE | 2017-11-25 21:59 | ED ---
HPI General Chief complaint: Weakness Stated complaint: gen weakness Time Seen by Provider: 11/25/17 20:27 Source: patient Mode of arrival: ambulatory Limitations: no limitations History of Present Illness HPI Narrative: 72-year-old male that presents to the ED for evaluation of weakness. Per sister patient was last seen normal about 2 weeks ago. Persistent noted really has taken care of him. Per sister he does have some history of altered mental status in the past and had an episode like this about a year ago. Per sister has not been eating or drinking much and she is concerned about the mental health of the patient. Patient himself denies any symptoms. He denies any chest pain or shortness of breath. He does take insulin for his diabetes. He denies taking more than usual. He does appear to be dehydrated. Patient himself is not a good source of information but sister is. Her sister patient is almost completely different from what he was 2 weeks ago. Unclear patient has been eating or drinking or taking his medications. Patient himself denies any suicidal homicidal ideation. No abdominal pain. No diarrhea. No blood thinner use. Patient does have a history of depression and takes medications for it but unclear if his been taking them. Related Data Home Medications Medication Instructions Recorded Confirmed Unable to Obtain Home Meds 11/25/17 11/25/17 Allergies Allergy/AdvReac Type Severity Reaction Status Date / Time No Known Allergies Allergy Verified 11/25/17 18:15 Review of Systems ROS: all other systems reviewed are negative [facility] Medical History Medical History Diabetes (Acute) Hypertension (Acute) Social History Social History Substance History: Past History Smoking Status: Former smoker How Often Do You Have a Drink Containing Alcohol: Never Recent Travel in [facility] within the Last 8 Weeks: No Recent Out of Country Travel within the Last 8 Weeks: No Immunization History Tetanus Immunization: <5 Years Hx Influenza Vaccine This Season: Yes Exam Narrative Exam Narrative: GENERAL: Well appearing. SKIN: Focused skin assessment warm/dry. HEAD: Atraumatic. Normocephalic. EYES: Pupils equal and round. No scleral icterus. No injection or drainage. ENT: No nasal bleeding or discharge. Mucous membranes pink and moist. Tongue is midline. No uvula deviation. NECK: Trachea midline. No JVD. CARDIOVASCULAR: Regular rate and rhythm. No murmur appreciated. RESPIRATORY: No accessory muscle use. Clear to auscultation. Breath sounds equal bilaterally. GASTROINTESTINAL: Abdomen soft, non-tender, nondistended. Hepatic and splenic margins not palpable. MUSCULOSKELETAL: No obvious deformities. No clubbing. No cyanosis. No edema. Full range of motion of the upper and lower extremities bilaterally. 2+ pulses bilaterally. NEUROLOGICAL: Awake and alert. No obvious cranial nerve deficits. Motor grossly within normal limits. Normal speech. PSYCHIATRIC: Slightly altered mood and affect; insight and judgment questionable Course Initial Documented Vital Signs Temperature 97.8 F 11/25/17 17:57 Pulse Rate 113 H 11/25/17 17:57 Respiratory Rate 18 11/25/17 17:57 Blood Pressure 157/82 H 11/25/17 17:57 Pulse Oximetry 95 11/25/17 17:57 Last Documented Vital Signs Temperature 97.8 F 11/25/17 17:57 Pulse Rate 103 H 11/25/17 21:00 Respiratory Rate 16 11/25/17 21:00 Blood Pressure 135/101 H 11/25/17 21:00 Pulse Oximetry 95 11/25/17 21:00 Medical Decision Making MDM Narrative Medical decision making narrative: 72-year-old male who presents to the ED for evaluation of altered mental status. Patient was properly examined and was found to have signs and symptoms consistent appears to be altered mental status would like to the hydration. Patient's records were reviewed. Patient had a similar episode about a year ago for same. Labs and imaging were done here. Labs and imaging did show what appears to be acute kidney injury with what appears to be severe dehydration. Patient was start IV fluids. Case discussed with the daughter who agrees to admission plan. Patient will be admitted. VADIM was paged Dr. Salse agrees to admission. Medical Screen Exam Complete: Yes Emergency Medical Condition: Yes Differential Diagnosis Differential Diagnosis: Generalized weakness versus sepsis versus UTI versus dehydration versus normal exam Medical Records Medical records reviewed: Yes I reviewed the patient's medical records. Lab Data Lab results reviewed: Yes I reviewed the patient's lab results. Lab results narrative: Troponin and CK-MB negative. Lactic acid elevated Result diagrams: 11/25/17 20:50 11/25/17 20:50 Lab Results 11/25/17 11/25/1718 Range/Units 20:50 20:50 20:50 WBC 10.1 (4.0-11.0) th/mm3 RBC 6.02 H (4.50-5.90) mil/mm3 Hgb 18.0 H (13.0-17.0) gm/dL Hct 54.7 H (39.0-51.0) % MCV 90.8 (80.0-100.0) fL MCH 29.8 (27.0-34.0) pg MCHC 32.9 (32.0-36.0) % RDW 14.8 (11.6-17.2) % Plt Count 221 (150-450) th/mm3 MPV 9.5 (7.0-11.0) fL Neut % (Auto) 59.3 (16.0-70.0) % Lymph % (Auto) 32.2 (9.0-44.0) % Steele % (Auto) 7.9 (0.0-8.0) % Eos % (Auto) 0.1 (0.0-4.0) % Baso % (Auto) 0.5 (0.0-2.0) % Neut # (Auto) 6.0 (1.8-7.7) th/mm3 Lymph # (Auto) 3.2 (1.0-4.8) th/mm3 Steele # (Auto) 0.8 (0.0-0.9) th/mm3 Eos # (Auto) 0.0 (0.0-0.4) th/mm3 Baso # (Auto) 0.1 (0.0-0.2) th/mm3 WBC Differential . Differential Comment Auto diff final PT 11.4 (9.8-11.6) sec INR 1.1 Ratio APTT 22.6 L (24.3-30.1) sec Sodium 150 H (136-145) meq/L Potassium 5.7 H (3.5-5.1) meq/L Chloride 114 H (98-107) meq/L Carbon Dioxide 24.6 (21.0-32.0) meq/L Anion Gap 11 (5-15) meq/L BUN 47 H (7-18) mg/dL Creatinine 2.15 H (0.60-1.30) mg/dL Estimated GFR 37 L (>89) mL/min Random Glucose 173 H (74-106) mg/dL Lactic Acid (0.4-2.0) mmol/L Calcium 9.5 (8.5-10.1) mg/dL Total Bilirubin 0.6 (0.2-1.0) mg/dL AST 28 (15-37) U/L ALT 18 (12-78) U/L Alkaline Phosphatase 92 (45-117) U/L Ammonia (11-32) mcmol/L Troponin I Less than 0.02 L (0.02-0.05) ng/mL Total Protein 10.3 H (6.4-8.2) g/dL Albumin 4.4 (3.4-5.0) g/dL TSH 2.100 (0.358-3.740) uIU/mL Serum Alcohol Less than 3 (0-5) mg/dL 11/25/17 11/25/17 Range/Units 20:50 20:50 WBC (4.0-11.0) th/mm3 RBC (4.50-5.90) mil/mm3 Hgb (13.0-17.0) gm/dL Hct (39.0-51.0) % MCV (80.0-100.0) fL MCH (27.0-34.0) pg MCHC (32.0-36.0) % RDW (11.6-17.2) % Plt Count (150-450) th/mm3 MPV (7.0-11.0) fL Neut % (Auto) (16.0-70.0) % Lymph % (Auto) (9.0-44.0) % Steele % (Auto) (0.0-8.0) % Eos % (Auto) (0.0-4.0) % Baso % (Auto) (0.0-2.0) % Neut # (Auto) (1.8-7.7) th/mm3 Lymph # (Auto) (1.0-4.8) th/mm3 Steele # (Auto) (0.0-0.9) th/mm3 Eos # (Auto) (0.0-0.4) th/mm3 Baso # (Auto) (0.0-0.2) th/mm3 WBC Differential Differential Comment PT (9.8-11.6) sec INR Ratio APTT (24.3-30.1) sec Sodium (136-145) meq/L Potassium (3.5-5.1) meq/L Chloride (98-107) meq/L Carbon Dioxide (21.0-32.0) meq/L Anion Gap (5-15) meq/L BUN (7-18) mg/dL Creatinine (0.60-1.30) mg/dL Estimated GFR (>89) mL/min Random Glucose (74-106) mg/dL Lactic Acid 3.2 H (0.4-2.0) mmol/L Calcium (8.5-10.1) mg/dL Total Bilirubin (0.2-1.0) mg/dL AST (15-37) U/L ALT (12-78) U/L Alkaline Phosphatase (45-117) U/L Ammonia Less than 10 L (11-32) mcmol/L Troponin I (0.02-0.05) ng/mL Total Protein (6.4-8.2) g/dL Albumin (3.4-5.0) g/dL TSH (0.358-3.740) uIU/mL Serum Alcohol (0-5) mg/dL Imaging Data Attestation: I personally reviewed and interpreted this imaging study as follows : Radiologist's impression: Chest X-Ray 11/25/17 20:40 CONCLUSION: No acute cardiopulmonary disease. ECG Data Attestation: I personally reviewed and interpreted this ECG as follows: Interpretation: EKG shows sinus tachycardia with a ventricular rate of 106. No sign of ST elevation or ischemia. Read by me and attending. HI interval of 141 ms Discharge Plan Discharge Disposition Patient Disposition: 30 Still Patient Discharge Details Diagnosis: LETICIA (acute kidney injury), Dehydration, Acute hypernatremia Physicians Team ED Provider: Gareth Pratt ED Midlevel Provider: Christopher Kramer Primary Care Provider: UNKNOWN, Rxs /Orders / Referrals /Forms Prescriptions: No Action Unable to Obtain Home Meds RF: 0 Status ED Status: With Doctor
[2017-11-25 22:02] LABS: Albumin 4.4 g/dL (3.4-5.0); Anion Gap 11 meq/L (5-15); Blood Urea Nitrogen 47 mg/dL (7-18); Calcium 9.5 mg/dL (8.5-10.1); Carbon Dioxide 24.6 meq/L (21.0-32.0); Chloride 114 meq/L (98-107); Glomerular Filtration Rate 37 mL/min (>89); Glucose,Random 173 mg/dL (74-106); Sodium 150 meq/L (136-145)
[2017-11-25 22:03] LABS: Aspartate Aminotransferase 28 U/L (15-37); Potassium 5.7 meq/L (3.5-5.1)
[2017-11-25 23:36] LABS: Bacteria,Urine Rare /hpf; Bilirubin,Urine Negative (Negative); Clarity,Urine Hazy (Clear); Color,Urine Yellow (Yellw/Straw); Glucose,Urine (UA) Negative (Negative); Hyaline Casts,Urine 7 /lpf (0-3); Leukocyte Esterase,Urine Negative (Negative); Mucus,Urine Few /lpf (Occasional); Nitrite,Urine Negative (Negative); Specific Gravity,Urine 1.025 (1.002-1.035); Squamous Epithelial Cell,Urine 1 /hpf (0-5); Urobilinogen,Urine 4 or Greater mg/dL (Less than 2)
[2017-11-25 23:39] LABS: Amphetamine Screen,Urine Neg (Neg); Barbiturate Screen,Urine Neg (Neg); Cannabinoid Screen,Urine Neg (Neg); Cocaine Screen,Urine Neg (Neg)
[2017-11-25] MEDS ORDERED: Sod Chloride 0.9% Inj 1,000 ML IV.CONT SCH (23:45)
--- NOTE | 2017-11-25 23:47 | CT ---
EXAM DATE: 11/25/2017 11:32 PM EDT AGE/SEX: 72 years / Male INDICATIONS: Altered mental status. CLINICAL DATA: This is the patient's initial encounter. Patient reports that signs and symptoms have been present for 1 day and indicates a pain score of 0/10. MEDICAL/SURGICAL HISTORY: Hypertension. Diabetes. None. RADIATION DOSE: 56.35 CTDI (mGy) COMPARISON: [facility] [place], CT BRAIN W/O CONTRAST, 06/12/2016. . TECHNIQUE: CT of the head without contrast. Using automated exposure control and adjustment of the mA and/or kV according to patient size, radiation dose was kept as low as reasonably achievable to ob tain optimal diagnostic quality images. DICOM format image data is available electronically for revi ew and comparison. FINDINGS: Cerebrum: The ventricles are normal for age. No evidence of midline shift, mass lesion, hemorrhage or acute infarction. No extraaxial fluid collections are seen. Posterior Fossa: The cerebellum and brainstem are intact. The 4th ventricle is midline. The cerebe llopontine angle is unremarkable. Extracranial: The visualized portion of the orbits is intact. Skull: The calvaria is intact. No evidence of skull fracture. CONCLUSION: 1. No acute findings. Stable mild chronic white matter ischemic changes. . Electronically signed by: Bartolo Kruse MD 11/25/2017 11:46 PM EDT
[2017-11-25 23:56] LABS: Opiate Screen,Urine Neg (Neg)
[2017-11-26] MEDS ORDERED: Acetaminophen 325 MG Tablet PO PRN (00:23)
[2017-11-26] MEDS ORDERED: Dextrose 50% in Water 50 ML Vial IV.PUSH PRN (00:25)
--- NOTE | 2017-11-26 01:30 | P.HP ---
History of Present Illness Service: [facility] Primary Care Physician: UNKNOWN History of Present Illness: 72-year-old male with a past medical history significant for hypertension and diabetes mellitus presents to the emergency department for evaluation of altered mental status. The patient cannot tell me exactly why he is here other than that he was "dehydrated." Per emergency department documentation the patient was last seen normal approximately 2 weeks ago. His sister reported that he has not been eating or drinking much over the past 2 weeks. The patient himself denies any symptoms. He denies any chest pain or shortness of breath. No abdominal pain. No nausea/vomiting/diarrhea. No urinary symptoms. No lateralizing signs/symptoms. No fevers/chills. Review of Systems All other systems reviewed negative except as stated in HPI [facility] - History History Provided By: Patient, Family Member - Medical History Medical History: Medical History (Last Reviewed 11/25/17 @ 21:56 by BRITTANY Gutierrez) Diabetes Hypertension - Surgical History Surgical History: Surgical History (Last Updated 11/26/17 @ 01:20 by Angie Sales MD) No history of previous surgery - Family History Family History: Family History (Last Updated 11/26/17 @ 01:20 by Angie Sales MD) Other Coronary artery disease Diabetes mellitus - Tobacco History Smoking Status: Former smoker - Alcohol History How Often Do You Have a Drink Containing Alcohol: Never - Substance Use History Substance History: Past History - Travel History Recent Travel in the [place] Within the Last 8 Weeks: No Recent Travel Out of the Country Within the Last 8 Weeks: No - Immunization History Tetanus Immunization: <5 Years Hx Influenza Vaccine This Season: Yes Medications and Allergies Active Medications: Active Medications Acetaminophen (Tylenol) 650 mg PO Q4H PRN PRN Reason: Temp > 100.4 Dextrose (D50w Vial) 50 ml IV.PUSH UNSCH PRN PRN Reason: PER HYPOGLYCEMIA PROTOCOL Glucagon (Glucagon Inj) 1 mg OTHER PRN PRN PRN Reason: for Hypoglycemia Protocol Heparin Sodium (Porcine) (Heparin Inj) 5,000 units SQ Q12H JASMYN Sodium Chloride (Ns Inj) 1,000 mls @ 0 mls/hr IV.SIG BOLUS JASMYN Sodium Chloride (Ns Inj) 1,000 mls @ 0 mls/hr IV.SIG BOLUS JASMYN Sodium Chloride (Ns Inj) 1,000 mls @ 125 mls/hr IV.CONT .Q8H JASMYN Insulin Aspart (Novolog Insulin Correctional Sugar Inj) 0 unit SQ ACHS JASMYN; Protocol Ondansetron HCl (Zofran Inj) 4 mg IV.PUSH Q6H PRN PRN Reason: NAUSEA OR VOMITING Sodium Chloride (Ns Flush) 2 ml IV.FLUSH PRN PRN PRN Reason: FLUSH AFTER USING IV ACCESS Allergies Allergy/AdvReac Type Severity Reaction Status Date / Time No Known Allergies Allergy Verified 11/25/17 18:15 Home Medications Medication Instructions Recorded Confirmed Type Unable to Obtain Home Meds 11/25/17 11/25/17 History Exam Vital signs: Vital Signs 11/25/17 17:57 11/25/17 20:48 11/25/17 21:00 Temperature 97.8 F Pulse Rate 113 H 103 H Respiratory Rate 18 16 Blood Pressure 157/82 H 135/101 H Pulse Oximetry 95 98 95 11/25/17 23:00 Temperature Pulse Rate 75 Respiratory Rate 16 Blood Pressure 111/64 Pulse Oximetry 97 Intake & Output 11/25/17 11/25/17 11/26/17 06:59 18:59 06:59 Weight 97.522 kg Narrative: Gen.: No acute distress Head: Normocephalic. Atraumatic. EENT: Pupils equal round and reactive to light. Nose without drainage. Airway intact. Throat without injection. Cardiovascular: Regular rate and rhythm. No murmurs, rubs or gallops. Respiratory: Lungs clear to auscultation bilaterally. No wheezes or rhonchi. Abdomen: Soft, nontender, nondistended. No peritoneal signs. Musculoskeletal: No gross deformities. No edema. Skin: No obvious rashes or erythema. Neuro: Sensory and motor grossly intact. Cranial nerves II through XII grossly intact. A&O 3. Results - Labs CBC & Chem 7: 11/25/17 20:50 11/25/17 20:50 Labs: Laboratory Results - last 24 hr 11/25/17 11/25/17 11/25/17 20:50 20:50 20:50 WBC 10.1 RBC 6.02 H Hgb 18.0 H Hct 54.7 H MCV 90.8 MCH 29.8 MCHC 32.9 RDW 14.8 Plt Count 221 MPV 9.5 Neut % (Auto) 59.3 Lymph % (Auto) 32.2 Heard % (Auto) 7.9 Eos % (Auto) 0.1 Baso % (Auto) 0.5 Neut # (Auto) 6.0 Lymph # (Auto) 3.2 Heard # (Auto) 0.8 Eos # (Auto) 0.0 Baso # (Auto) 0.1 WBC Differential . Differential Comment Auto diff final PT 11.4 INR 1.1 APTT 22.6 L Sodium 150 H Potassium 5.7 H Chloride 114 H Carbon Dioxide 24.6 Anion Gap 11 BUN 47 H Creatinine 2.15 H Estimated GFR 37 L Random Glucose 173 H Lactic Acid Calcium 9.5 Total Bilirubin 0.6 AST 28 ALT 18 Alkaline Phosphatase 92 Ammonia Total Creatine Kinase Troponin I Less than 0.02 L Total Protein 10.3 H Albumin 4.4 TSH 2.100 Urine Color Urine Clarity Urine pH Ur Specific Grimes Urine Protein Urine Glucose (UA) Urine Ketones Urine Occult Blood Urine Nitrate Urine Bilirubin Urine Urobilinogen Ur Leukocyte Esterase Urine RBC Urine WBC Ur Squamous Epith Cells Urine Bacteria Hyaline Casts Granular Casts WBC Casts Urine Mucus Micro UA Comment Ur Microscopic Review Urine Culture Comments Urine Opiates Screen Ur Barbiturates Screen Ur Amphetamines Screen U Benzodiazepines Scrn Urine Cocaine Screen U Cannabinoids Screen Serum Alcohol Less than 3 11/25/17 11/25/17 11/25/17 20:50 20:50 20:50 WBC RBC Hgb Hct MCV MCH MCHC RDW Plt Count MPV Neut % (Auto) Lymph % (Auto) Heard % (Auto) Eos % (Auto) Baso % (Auto) Neut # (Auto) Lymph # (Auto) Heard # (Auto) Eos # (Auto) Baso # (Auto) WBC Differential Differential Comment PT INR APTT Sodium Potassium Chloride Carbon Dioxide Anion Gap BUN Creatinine Estimated GFR Random Glucose Lactic Acid 3.2 H Calcium Total Bilirubin AST ALT Alkaline Phosphatase Ammonia Less than 10 L Total Creatine Kinase 259 Troponin I Total Protein Albumin TSH Urine Color Urine Clarity Urine pH Ur Specific Grimes Urine Protein Urine Glucose (UA) Urine Ketones Urine Occult Blood Urine Nitrate Urine Bilirubin Urine Urobilinogen Ur Leukocyte Esterase Urine RBC Urine WBC Ur Squamous Epith Cells Urine Bacteria Hyaline Casts Granular Casts WBC Casts Urine Mucus Micro UA Comment Ur Microscopic Review Urine Culture Comments Urine Opiates Screen Ur Barbiturates Screen Ur Amphetamines Screen U Benzodiazepines Scrn Urine Cocaine Screen U Cannabinoids Screen Serum Alcohol 0911/25/17 11/26/17 23:15 23:15 00:15 WBC RBC Hgb Hct MCV MCH MCHC RDW Plt Count MPV Neut % (Auto) Lymph % (Auto) Heard % (Auto) Eos % (Auto) Baso % (Auto) Neut # (Auto) Lymph # (Auto) Heard # (Auto) Eos # (Auto) Baso # (Auto) WBC Differential Differential Comment PT INR APTT Sodium Potassium Chloride Carbon Dioxide Anion Gap BUN Creatinine Estimated GFR Random Glucose Lactic Acid 3.0 H Calcium Total Bilirubin AST ALT Alkaline Phosphatase Ammonia Total Creatine Kinase Troponin I Total Protein Albumin TSH Urine Color Yellow Urine Clarity Hazy H Urine pH 5.0 Ur Specific Grimes 1.025 Urine Protein 100 H Urine Glucose (UA) Negative Urine Ketones 20 Urine Occult Blood Small H Urine Nitrate Negative Urine Bilirubin Negative Urine Urobilinogen 4 or greater Ur Leukocyte Esterase Negative Urine RBC 1 Urine WBC 4 Ur Squamous Epith Cells 1 Urine Bacteria Rare H Hyaline Casts 7 Granular Casts 1 WBC Casts 5 Urine Mucus Few H Micro UA Comment Culture not ind Ur Microscopic Review Not Reportable Urine Culture Comments Culture not ind Urine Opiates Screen Neg Ur Barbiturates Screen Neg Ur Amphetamines Screen Neg U Benzodiazepines Scrn Neg Urine Cocaine Screen Neg U Cannabinoids Screen Neg Serum Alcohol - Imaging Impressions Chest X-Ray 11/25/17 20:40 CONCLUSION: No acute cardiopulmonary disease. Head CT 11/25/17 20:40 CONCLUSION: 1. No acute findings. Stable mild chronic white matter ischemic changes. . Caprini VTE Risk Assessment Caprini VTE Risk Assessment: Moderate/High Risk (score >= 2) Caprini Risk Assessment Model: Point Value = 1 Point Value = 2 Point Value = 3 Point Value = 5 Age 41-60 Minor surgery BMI > 25 kg/m2 Swollen legs Varicose veins or History of unexplained or recurrent spontaneous Oral contraceptives or hormone replacement Sepsis (< 1 month) Serious lung disease, including pneumonia (< 1 month) Abnormal pulmonary function Acute myocardial infarction Congestive heart failure (< 1 month) History of inflammatory bowel disease Medical patient at bed rest Age 61-74 Arthroscopic surgery Major open surgery (> 45 min) Laparoscopic surgery (> 45 min) Malignancy Confined to bed (> 72 hours) Immobilizing plaster cast Central venous access Age >= 75 History of VTE Family history of VTE Factor V Leiden Prothrombin [id number] Lupus anticoagulant Anticardiolipin antibodies Elevated serum homocysteine Heparin-induced thrombocytopenia Other congenital or acquired thrombophilia Stroke (< 1 month) Elective arthroplasty Hip, pelvis, or leg fracture Acute spinal cord injury (< 1 month) Prophylaxis Regimen: Total Risk Factor Score Risk Level Prophylaxis Regimen 0-1 Low Early ambulation 2 Moderate Order ONE of the following: *Sequential Compression Device (SCD) *Heparin 5000 units SQ BID 3-4 Higher Order ONE of the following medications: *Heparin 5000 units SQ TID *Enoxaparin/Lovenox 40 mg SQ daily (WT < 150 kg, CrCl > 30 mL/min) *Enoxaparin/Lovenox 30 mg SQ daily (WT < 150 kg, CrCl > 10-29 mL/min) *Enoxaparin/Lovenox 30 mg SQ BID (WT < 150 kg, CrCl > 30 mL/min) AND/OR *Sequential Compression Device (SCD) 5 or more Highest Order ONE of the following medications: *Heparin 5000 units SQ TID (Preferred with Epidurals) *Enoxaparin/Lovenox 40 mg SQ daily (WT < 150 kg, CrCl > 30 mL/min) *Enoxaparin/Lovenox 30 mg SQ daily (WT < 150 kg, CrCl > 10-29 mL/min) *Enoxaparin/Lovenox 30 mg SQ BID (WT < 150 kg, CrCl > 30 mL/min) AND *Sequential Compression Device (SCD) Assessment and Plan - Plan Assessment/plan: 1. Altered mental status Unclear etiology Head CT negative for acute process Likely secondary to dehydration Appears to be resolving with IV fluids 2. Acute renal insufficiency Creatinine 2.15, baseline 1.2 from 06/01 Likely secondary to dehydration Renal ultrasound pending IV fluid hydration Monitor renal function Consider nephrology consult if renal function does not improve 3. Hypernatremia Sodium 150 Patient given 3 L normal saline in the emergency department Transition to half normal saline BMP in a.m. 4. Diabetes mellitus Patient does not know what his home insulin regimen is Sliding-scale insulin Monitor blood glucose 5. Hypertension Patient does not now his home medications Clonidine as needed until medication reconciliation can be completed 6. Elevated lactic acid Unclear etiology Blood cultures pending No leukocytosis Chest x-ray, IV fluid hydration Monitor FEN Renal diet Electrolytes: As above One half NS at 1 25 cc/hour Heparin
[2017-11-26] MEDS: Sodium Chloride 0.45 % Inj 1,000 ML IV.CONT SCH ×4 (01:51→18:36)
[2017-11-26 04:22] LABS: Baso % (Auto) 0.4 % (0.0-2.0); Eos % (Auto) 0.3 % (0.0-4.0); Hematocrit 44.6 % (39.0-51.0); Hemoglobin 14.6 gm/dL (13.0-17.0); Lymph # (Auto) 3.4 th/mm3 (1.0-4.8); Lymph % (Auto) 37.8 % (9.0-44.0); Mean Corpuscular HGB Conc 32.8 % (32.0-36.0); Mean Corpuscular Hemoglobin 30.1 pg (27.0-34.0); Mean Corpuscular Volume 91.7 fL (80.0-100.0); Mean Platelet Volume 9.7 fL (7.0-11.0); Mono # (Auto) 0.7 th/mm3 (0.0-0.9); Mono % (Auto) 7.8 % (0.0-8.0); Neut # (Auto) 4.9 th/mm3 (1.8-7.7); Neut % (Auto) 53.7 % (16.0-70.0); Platelet Count 163 th/mm3 (150-450); Red Blood Count 4.86 mil/mm3 (4.50-5.90); Red Cell Distribution Width 14.2 % (11.6-17.2); White Blood Count 9.1 th/mm3 (4.0-11.0)
[2017-11-26 04:39] LABS: Alanine Aminotransferase 13 U/L (12-78); Albumin 3.4 g/dL (3.4-5.0); Alkaline Phosphatase 70 U/L (45-117); Anion Gap 11 meq/L (5-15); Aspartate Aminotransferase 14 U/L (15-37); Blood Urea Nitrogen 38 mg/dL (7-18); Calcium 8.1 mg/dL (8.5-10.1); Chloride 117 meq/L (98-107); Glomerular Filtration Rate 53 mL/min (>89); Glucose,Random 182 mg/dL (74-106); Potassium 3.4 meq/L (3.5-5.1); Sodium 150 meq/L (136-145); Total Protein 7.4 g/dL (6.4-8.2)
[2017-11-26] MEDS: Insulin NovoLOG Aspart Correctional Sugar Inj SQ SCH ×4 (08:33→22:24)
[2017-11-26] MEDS: Heparin - SQ 10,000 UNITS/ML Vial SQ SCH ×2 (09:20→22:24)
--- NOTE | 2017-11-26 10:47 | P.DCO ---
- Physical Therapy Order: Evaluate and treat - Home Health Nursing Order: Signs/symptoms of disease process - Certification I have seen patient Jacques Samayoa on 11/26/17. My clinical findings support the need for the requested home health care services because: Limited ability to care for self I certify that my clinical findings support that this patient is homebound because: Unsafe to leave home unassisted
--- NOTE | 2017-11-26 14:00 | ECG ---
Date Performed: 11/25/2017 Time Performed: 20:57:00 PTAGE: 72 years EKG: SINUS TACHYCARDIA ABNORMAL RHYTHM ECG Since the PREVIOUS TRACING , no significant change noted PREVIOUS TRACIN06/12/2016 19.48 DOCTOR: Kian Prather Interpretating Date/Time 11/26/2017 13:59:10
--- NOTE | 2017-11-26 16:27 | P.PN ---
Subjective Interval history: Nursing denies any deterioration since last night. Patient himself has no new complaints. Is able to demonstrate orientation 3 as well as intact insight. Physical Exam Vital signs: Vital Signs 11/25/17 17:57 11/25/17 20:48 11/25/17 21:00 Temperature 97.8 F Pulse Rate 113 H 103 H Respiratory Rate 18 16 Blood Pressure 157/82 H 135/101 H Pulse Oximetry 95 98 95 11/25/17 23:00 11/26/17 02:19 11/26/17 04:00 Temperature 97.5 F L 97.6 F Pulse Rate 75 76 72 Respiratory Rate 16 20 16 Blood Pressure 111/64 100/66 85/68 L Pulse Oximetry 97 100 100 11/26/17 07:23 11/26/17 11:25 11/26/17 15:59 Temperature 96.9 F L 97.3 F L 98.1 F Pulse Rate 70 78 80 Respiratory Rate 16 16 16 Blood Pressure 97/67 L 110/60 109/65 Pulse Oximetry 95 96 96 Intake & Output 11/25/17 11/26/17 11/26/17 18:59 06:59 18:59 Intake Total 590 / 590 Balance 590 / 590 Weight 97.522 kg 97.522 kg Intake: Oral 590 / 590 Other: # Voids 1 Weight On Admission 97.522 kg Narrative: Intact for prescription bilaterally are 5 out of 5 proximal upper and lower extremity strength No facial droop, no slurred speech, alert and oriented 3 with intact insight unlabored breathing Results - Labs CBC & Chem 7: 11/26/17 03:17 11/26/17 03:17 Laboratory Results - last 24 hr 11/25/17 11/25/17 11/25/17 20:50 20:50 20:50 WBC 10.1 RBC 6.02 H Hgb 18.0 H Hct 54.7 H MCV 90.8 MCH 29.8 MCHC 32.9 RDW 14.8 Plt Count 221 MPV 9.5 Neut % (Auto) 59.3 Lymph % (Auto) 32.2 [place] % (Auto) 7.9 Eos % (Auto) 0.1 Baso % (Auto) 0.5 Neut # (Auto) 6.0 Lymph # (Auto) 3.2 [place] # (Auto) 0.8 Eos # (Auto) 0.0 Baso # (Auto) 0.1 WBC Differential . Differential Comment Auto diff final PT 11.4 INR 1.1 APTT 22.6 L Sodium 150 H Potassium 5.7 H Chloride 114 H Carbon Dioxide 24.6 Anion Gap 11 BUN 47 H Creatinine 2.15 H Estimated GFR 37 L POC Glucose Random Glucose 173 H Lactic Acid Calcium 9.5 Total Bilirubin 0.6 AST 28 ALT 18 Alkaline Phosphatase 92 Ammonia Total Creatine Kinase Troponin I Less than 0.02 L Total Protein 10.3 H Albumin 4.4 TSH 2.100 Urine Color Urine Clarity Urine pH Ur Specific [place] Urine Protein Urine Glucose (UA) Urine Ketones Urine Occult Blood Urine Nitrate Urine Bilirubin Urine Urobilinogen Ur Leukocyte Esterase Urine RBC Urine WBC Ur Squamous Epith Cells Urine Bacteria Hyaline Casts Granular Casts WBC Casts Urine Mucus Micro UA Comment Ur Microscopic Review Urine Culture Comments Urine Opiates Screen Ur Barbiturates Screen Ur Amphetamines Screen U Benzodiazepines Scrn Urine Cocaine Screen U Cannabinoids Screen Serum Alcohol Less than 3 11/25/17 11/25/17 11/25/17 20:50 20:50 20:50 WBC RBC Hgb Hct MCV MCH MCHC RDW Plt Count MPV Neut % (Auto) Lymph % (Auto) [place] % (Auto) Eos % (Auto) Baso % (Auto) Neut # (Auto) Lymph # (Auto) [place] # (Auto) Eos # (Auto) Baso # (Auto) WBC Differential Differential Comment PT INR APTT Sodium Potassium Chloride Carbon Dioxide Anion Gap BUN Creatinine Estimated GFR POC Glucose Random Glucose Lactic Acid 3.2 H Calcium Total Bilirubin AST ALT Alkaline Phosphatase Ammonia Less than 10 L Total Creatine Kinase 259 Troponin I Total Protein Albumin TSH Urine Color Urine Clarity Urine pH Ur Specific [place] Urine Protein Urine Glucose (UA) Urine Ketones Urine Occult Blood Urine Nitrate Urine Bilirubin Urine Urobilinogen Ur Leukocyte Esterase Urine RBC Urine WBC Ur Squamous Epith Cells Urine Bacteria Hyaline Casts Granular Casts WBC Casts Urine Mucus Micro UA Comment Ur Microscopic Review Urine Culture Comments Urine Opiates Screen Ur Barbiturates Screen Ur Amphetamines Screen U Benzodiazepines Scrn Urine Cocaine Screen U Cannabinoids Screen Serum Alcohol 11/25/17 11/25/17 11/26/17 23:15 23:15 00:15 WBC RBC Hgb Hct MCV MCH MCHC RDW Plt Count MPV Neut % (Auto) Lymph % (Auto) [place] % (Auto) Eos % (Auto) Baso % (Auto) Neut # (Auto) Lymph # (Auto) [place] # (Auto) Eos # (Auto) Baso # (Auto) WBC Differential Differential Comment PT INR APTT Sodium Potassium Chloride Carbon Dioxide Anion Gap BUN Creatinine Estimated GFR POC Glucose Random Glucose Lactic Acid 3.0 H Calcium Total Bilirubin AST ALT Alkaline Phosphatase Ammonia Total Creatine Kinase Troponin I Total Protein Albumin TSH Urine Color Yellow Urine Clarity Hazy H Urine pH 5.0 Ur Specific [place] 1.025 Urine Protein 100 H Urine Glucose (UA) Negative Urine Ketones 20 Urine Occult Blood Small H Urine Nitrate Negative Urine Bilirubin Negative Urine Urobilinogen 4 or greater Ur Leukocyte Esterase Negative Urine RBC 1 Urine WBC 4 Ur Squamous Epith Cells 1 Urine Bacteria Rare H Hyaline Casts 7 Granular Casts 1 WBC Casts 5 Urine Mucus Few H Micro UA Comment Culture not ind Ur Microscopic Review Not Reportable Urine Culture Comments Culture not ind Urine Opiates Screen Neg Ur Barbiturates Screen Neg Ur Amphetamines Screen Neg U Benzodiazepines Scrn Neg Urine Cocaine Screen Neg U Cannabinoids Screen Neg Serum Alcohol 11/26/17 11/26/17 11/26/17 03:17 03:17 03:17 WBC 9.1 RBC 4.86 Hgb 14.6 D Hct 44.6 MCV 91.7 MCH 30.1 MCHC 32.8 RDW 14.2 Plt Count 163 MPV 9.7 Neut % (Auto) 53.7 Lymph % (Auto) 37.8 [place] % (Auto) 7.8 Eos % (Auto) 0.3 Baso % (Auto) 0.4 Neut # (Auto) 4.9 Lymph # (Auto) 3.4 [place] # (Auto) 0.7 Eos # (Auto) 0.0 Baso # (Auto) 0.0 WBC Differential . Differential Comment Auto diff final PT INR APTT Sodium 150 H Potassium 3.4 L D Chloride 117 H Carbon Dioxide 22.0 Anion Gap 11 BUN 38 H Creatinine 1.57 H Estimated GFR 53 L POC Glucose Random Glucose 182 H Lactic Acid 4.2 H* Calcium 8.1 L D Total Bilirubin 0.4 AST 14 L ALT 13 Alkaline Phosphatase 70 Ammonia Total Creatine Kinase Troponin I Total Protein 7.4 D Albumin 3.4 D TSH Urine Color Urine Clarity Urine pH Ur Specific [place] Urine Protein Urine Glucose (UA) Urine Ketones Urine Occult Blood Urine Nitrate Urine Bilirubin Urine Urobilinogen Ur Leukocyte Esterase Urine RBC Urine WBC Ur Squamous Epith Cells Urine Bacteria Hyaline Casts Granular Casts WBC Casts Urine Mucus Micro UA Comment Ur Microscopic Review Urine Culture Comments Urine Opiates Screen Ur Barbiturates Screen Ur Amphetamines Screen U Benzodiazepines Scrn Urine Cocaine Screen U Cannabinoids Screen Serum Alcohol 11/26/17 11/26/17 11/26/17 08:32 10:51 13:10 WBC RBC Hgb Hct MCV MCH MCHC RDW Plt Count MPV Neut % (Auto) Lymph % (Auto) [place] % (Auto) Eos % (Auto) Baso % (Auto) Neut # (Auto) Lymph # (Auto) [place] # (Auto) Eos # (Auto) Baso # (Auto) WBC Differential Differential Comment PT INR APTT Sodium Potassium Chloride Carbon Dioxide Anion Gap BUN Creatinine Estimated GFR POC Glucose 127 H 223 H Random Glucose Lactic Acid 5.5 H* Calcium Total Bilirubin AST ALT Alkaline Phosphatase Ammonia Total Creatine Kinase Troponin I Total Protein Albumin TSH Urine Color Urine Clarity Urine pH Ur Specific [place] Urine Protein Urine Glucose (UA) Urine Ketones Urine Occult Blood Urine Nitrate Urine Bilirubin Urine Urobilinogen Ur Leukocyte Esterase Urine RBC Urine WBC Ur Squamous Epith Cells Urine Bacteria Hyaline Casts Granular Casts WBC Casts Urine Mucus Micro UA Comment Ur Microscopic Review Urine Culture Comments Urine Opiates Screen Ur Barbiturates Screen Ur Amphetamines Screen U Benzodiazepines Scrn Urine Cocaine Screen U Cannabinoids Screen Serum Alcohol 11/26/17 15:24 WBC RBC Hgb Hct MCV MCH MCHC RDW Plt Count MPV Neut % (Auto) Lymph % (Auto) [place] % (Auto) Eos % (Auto) Baso % (Auto) Neut # (Auto) Lymph # (Auto) [place] # (Auto) Eos # (Auto) Baso # (Auto) WBC Differential Differential Comment PT INR APTT Sodium Potassium Chloride Carbon Dioxide Anion Gap BUN Creatinine Estimated GFR POC Glucose Random Glucose Lactic Acid 3.8 H Calcium Total Bilirubin AST ALT Alkaline Phosphatase Ammonia Total Creatine Kinase Troponin I Total Protein Albumin TSH Urine Color Urine Clarity Urine pH Ur Specific [place] Urine Protein Urine Glucose (UA) Urine Ketones Urine Occult Blood Urine Nitrate Urine Bilirubin Urine Urobilinogen Ur Leukocyte Esterase Urine RBC Urine WBC Ur Squamous Epith Cells Urine Bacteria Hyaline Casts Granular Casts WBC Casts Urine Mucus Micro UA Comment Ur Microscopic Review Urine Culture Comments Urine Opiates Screen Ur Barbiturates Screen Ur Amphetamines Screen U Benzodiazepines Scrn Urine Cocaine Screen U Cannabinoids Screen Serum Alcohol Microbiology 11/25/17 20:50 Blood - Peripheral Aerobic Blood Culture - Preliminary No growth in 1 day 11/25/17 20:50 Blood - Peripheral Anaerobic Blood Culture - Preliminary No growth in 1 day 11/25/17 20:55 Blood - Peripheral Aerobic Blood Culture - Preliminary No growth in 1 day 11/25/17 20:55 Blood - Peripheral Anaerobic Blood Culture - Preliminary No growth in 1 day - Imaging Impressions Chest X-Ray 11/25/17 20:40 CONCLUSION: No acute cardiopulmonary disease. Head CT 11/25/17 20:40 CONCLUSION: 1. No acute findings. Stable mild chronic white matter ischemic changes. . Assessment and Plan - Plan 72-year-old black male admitted for altered mental status. Assessment/plan: 1. Altered mental status Resolved 2. Acute renal insufficiency Improving with IV fluids, continue as such 3. Hypernatremia Sodium 150 Continue half-normal saline, recheck sodium 4. Diabetes mellitus Patient does not know what his home insulin regimen is Sliding-scale insulin Monitor blood glucose 5. Hypertension Patient does not now his home medications Clonidine as needed until medication reconciliation can be completed 6. Elevated lactic acid Initially was worsening now is improving, monitor clinically Heparin
[2017-11-26 16:56] LABS: Calcium 7.9 mg/dL (8.5-10.1); Potassium 3.4 meq/L (3.5-5.1)
[2017-11-27] MEDS: Sodium Chloride 0.45 % Inj 1,000 ML IV.CONT SCH ×2 (03:03→09:08)
[2017-11-27 07:49] LABS: Anion Gap 9 meq/L (5-15); Blood Urea Nitrogen 20 mg/dL (7-18); Calcium 8.3 mg/dL (8.5-10.1); Carbon Dioxide 26.2 meq/L (21.0-32.0); Chloride 109 meq/L (98-107); Glomerular Filtration Rate Greater Than 89 mL/min (>89); Glucose,Random 122 mg/dL (74-106); Potassium 3.2 meq/L (3.5-5.1); Sodium 144 meq/L (136-145)
[2017-11-27 08:28] VITALS: RESP 18
[2017-11-27] MEDS: Insulin NovoLOG Aspart Correctional Sugar Inj SQ SCH (09:06)
[2017-11-27] MEDS: Heparin - SQ 10,000 UNITS/ML Vial SQ SCH (09:07)
--- NOTE | 2017-11-27 11:20 | P.PN ---
Subjective Interval history: Nursing denies any deterioration since last night. Patient himself has no new complaints. Physical Exam Vital signs: Vital Signs 11/26/17 11:25 11/26/17 15:59 11/26/17 20:00 Temperature 97.3 F L 98.1 F 98.0 F Pulse Rate 78 80 80 Respiratory Rate 16 16 20 Blood Pressure 110/60 109/65 109/64 Pulse Oximetry 96 96 94 L 11/26/17 21:33 11/27/17 00:00 11/27/17 04:00 Temperature 98.4 F 98.2 F Pulse Rate 72 71 Respiratory Rate 19 22 Blood Pressure 110/53 L 127/72 Pulse Oximetry 94 L 96 11/27/17 08:00 Temperature 98.7 F Pulse Rate 72 Respiratory Rate 18 Blood Pressure 117/73 Pulse Oximetry 99 Intake & Output 11/26/17 11/27/17 11/27/17 18:59 06:59 18:59 Intake Total 600 / 600 1420 / 1420 1000 / 1000 Balance 600 / 600 1420 / 1420 1000 / 1000 Intake: IV 1000 / 1000 1000 / 1000 1/2 Normal Saline Inj 1,000 ML 1000 / 1000 1000 / 1000 @ 125 mls/hr IV.CONT .Q8H [facility] Rx#:[id number] Oral 600 / 600 420 / 420 Other: # Voids 3 Date of Last Bowel Movement 11/26/17 # Bowel Movements 1 Narrative: 5/5 proximal upper and lower extremity gross strength bilaterally including for prescription No facial droop, no slurred speech Alert and oriented 3, is able to demonstrate insight Results - Labs CBC & Chem 7: 11/26/17 03:17 11/27/17 06:58 Laboratory Results - last 24 hr 11/26/17 11/26/17 11/26/17 10:51 13:10 15:24 Sodium 145 Potassium 3.4 L Chloride 109 H D Carbon Dioxide 24.0 Anion Gap 12 BUN 30 H Creatinine 1.21 Estimated GFR 72 L POC Glucose 223 H Random Glucose 212 H Lactic Acid 5.5 H* Calcium 7.9 L Vitamin B12 11/26/17 11/26/17 11/26/17 15:24 15:24 16:59 Sodium Potassium Chloride Carbon Dioxide Anion Gap BUN Creatinine Estimated GFR POC Glucose 173 H Random Glucose Lactic Acid 3.8 H Calcium Vitamin B12 460 11/27/17 11/27/17 06:58 08:05 Sodium 144 Potassium 3.2 L Chloride 109 H Carbon Dioxide 26.2 Anion Gap 9 BUN 20 H Creatinine 0.85 Estimated GFR Greater than 89 POC Glucose 156 H Random Glucose 122 H Lactic Acid Calcium 8.3 L Vitamin B12 Microbiology 11/25/17 20:50 Blood - Peripheral Aerobic Blood Culture - Preliminary No growth in 2 days 11/25/17 20:50 Blood - Peripheral Anaerobic Blood Culture - Preliminary No growth in 2 days 11/25/17 20:55 Blood - Peripheral Aerobic Blood Culture - Preliminary No growth in 2 days 11/25/17 20:55 Blood - Peripheral Anaerobic Blood Culture - Preliminary No growth in 2 days Assessment and Plan - Assessment (1) Unsteady gait Code(s): R26.81 - Unsteadiness on feet Status: Acute - Plan 72-year-old black male admitted for altered mental status which resolved yesterday. Acute kidney injury and hypernatremia also resolved. Likely discharge diagnosis is metabolic encephalopathy that resolved with conservative management. Patient has been maximal benefit from hospitalization and is clinically stable for discharge.
[2017-11-27 12:26] VITALS: BP 124/74; PULSE 86; TEMP 98.9; O2SAT 94
== END 2017-11-27 22:19 | disposition home or self-care (01) ==
LOC: NEDA 17:50 → NEPC 17:50 → NEPHCDU 11-26 01:39
PROVIDERS: ADMIT Hospitalist; ATTEND Hospitalist